=== PATIENT | male | born 1945 | race Caucasian/White ===

== ENCOUNTER → 2016-11-04 | Outpatient (CLI) | payer MEDICARE, OTHER ==
--- NOTE | 2016-11-04 11:35 | XR ---
EXAMINATION TYPE: XR chest 2V DATE OF EXAM: 11/04/2016 11:27 AM COMPARISON: NONE TECHNIQUE: PA and lateral views submitted. HISTORY: Shortness of breath FINDINGS: The lungs are clear and there is no pneumothorax, pleural effusion, or focal pneumonia. IMPRESSION: 1. No acute process.
== END | disposition home or self-care (01) ==
LOC: RADXRMAIN 11:03
PROVIDERS: ATTEND Family Medicine
DX: I20.9 Angina pectoris, unspecified (principal)
CPT/HCPCS: 71020

== ENCOUNTER → 2016-11-11 | Outpatient (CLI) | payer MEDICARE, OTHER ==
--- NOTE | 2016-11-11 12:01 | EST ---
DATE OF SERVICE: 11/11/2016 AGE: 70Y SEX: M HT: 68 WT: 230 lbs. Protocol Patrick: X Other: Stage: II Dur. of Exercise: 6-1/2 minutes *Heart Rate Blood Pressure *Rest: 70 Rest: 168/93 * *Max. Achieved: 98 Maximum BP: 189/90 85% PMHR: 129 100% PMHR: 152 *METS: 7.5 INDICATIONS: To evaluate for coronary artery disease in a patient as part of a physical. MEDICATIONS: Metformin, famotidine, pravastatin. Baseline EKG shows sinus rhythm, normal axis, poor R wave progression. Patient exercised on Patrick protocol for a total of 6-1/2 minutes, achieving 7.5 METs. Attained a peak heart rate 98 beats per minute, which is 64% of predicted maximal heart rate. The test was stopped at that level because of an inability to exercise. CONCLUSIONS: 1. Average exercise tolerance. 2. Inconclusive EKG part of the stress test due to inability to attain target heart rate.
--- NOTE | 2016-11-11 13:29 | US ---
EXAMINATION TYPE: US carotid duplex BILAT DATE OF EXAM: 11/11/2016 12:42 PM COMPARISON: NONE CLINICAL HISTORY: E78.5 hyperlipidemia. EXAM MEASUREMENTS: RIGHT: Peak Systolic Velocity (PSV) cm/sec ----- Right CCA: 66.9 ----- Right ICA: 92.1 ----- Right ECA: 105.7 ICA/CCA ratio: 1.4 RIGHT: End Diastole cm/sec ----- Right CCA: 19.7 ----- Right ICA: 38.1 ----- Right ECA: 25.4 LEFT: Peak Systolic Velocity (PSV) cm/sec ----- Left CCA: 80.0 ----- Left ICA: 85.5 ----- Left ECA: 106.1 ICA/CCA ratio: 1.1 LEFT: End Diastole cm/sec ----- Left CCA: 26.0 ----- Left ICA: 38.1 ----- Left ECA: 23.6 VERTEBRALS (direction of flow): Right Vertebral: Antegrade Left Vertebral: Antegrade TECHNOLOGIST IMPRESSION: No elevated velocities Incidental note of left thyroid nodules. Largest Low er lobe=3.4 x 3.4 x 2.5 cm Grayscale images show no significant focal plaque at carotid bulbs bilaterally. Velocity measurements and ratios in visualized portion of both internal carotid arteries is within normal limits. Incident al note is made of suspicious 3.3 cm solid left thyroid nodule. IMPRESSION: No hemodynamically significant stenosis in either internal carotid artery. Suspicious thyroid nodules. Dedicated thyroid ultrasound follow-up is advised to further evaluate and characteri ze.
--- NOTE | 2016-11-12 09:40 | ECHOF ---
Referral Reason:E78.5 hyperlipedemia MEASUREMENTS -------- HEIGHT: 172.7 cm WEIGHT: 104.3 kg BP: 154/85 RVIDd: 3.2 cm (< 3.3) IVSd: 1.3 cm (0.6 - 1.1) LVIDd: 4.8 cm (3.9 - 5.3) LVPWd: 1.1 cm (0.6 - 1.1) IVSs: 2.0 cm LVIDs: 3.4 cm LVPWs: 1.7 cm LA Diam: 3.2 cm (2.7 - 3.8) LAESV Index (A-L): 20.47 ml/m Ao Diam: 3.4 cm (2.0 - 3.7) AV Cusp: 1.8 cm (1.5 - 2.6) LA Diam: 3.3 cm (2.7 - 3.8) MV EXCURSION: 10.542 mm (> 18.000) MV EF SLOPE: 49 mm/s (70 - 150) EPSS: 0.6 cm MV E King: 0.49 m/s MV DecT: 315 ms MV A King: 0.73 m/s MV E/A Ratio: 0.67 RAP: 5.00 mmHg RVSP: 29.40 mmHg FINDINGS -------- Sinus rhythm. This was a technically adequate study. There is mild concentric left ventricular hypertrophy. Overall left ventricular systolic function is normal with, an EF between 55 - 60 %. The right ventricle is normal in size. Normal LA size by volume 22+/-6 ml/m2. The right atrium is normal in size. The aortic valve is trileaflet and appears structurally normal. Mild mitral annular calcification present. Mild tricuspid regurgitation present. Pulmonic valve appears structurally normal. The aortic root size is normal. Normal inferior vena cava with normal inspiratory collapse consistent with estimated right atrial pressure of 5 mmHg. Echo free space may represent effusion or a pericardial fat pad. CONCLUSIONS -------- 1. Sinus rhythm. 2. Mild tricuspid regurgitation present. 3. Pulmonic valve appears structurally normal. 4. The aortic root size is normal. 5. Normal inferior vena cava with normal inspiratory collapse consistent with estimated right atrial pressure of 5 mmHg. 6. Echo free space may represent effusion or a pericardial fat pad. 7. This was a technically adequate study. 8. There is mild concentric left ventricular hypertrophy. 9. Overall left ventricular systolic function is normal with, an EF between 55 - 60 %. 10. The right ventricle is normal in size. 11. Normal LA size by volume 22+/-6 ml/m2. 12. The right atrium is normal in size. 13. The aortic valve is trileaflet and appears structurally normal. 14. Mild mitral annular calcification present. INSULATION POWER UNIT TENDER: Virginia Chris RDCS
== END ==
LOC: RADNMMAIN 10:57
PROVIDERS: ATTEND Family Medicine
DX: E78.5 Hyperlipidemia, unspecified (principal)
CPT/HCPCS: 93017; 93306; 93880

== ENCOUNTER → 2016-12-01 | Outpatient (CLI) | payer MEDICARE, OTHER ==
--- NOTE | 2016-12-01 15:12 | US ---
EXAMINATION TYPE: US thyroid st tissue head/neck DATE OF EXAM: 12/01/2016 2:34 PM COMPARISON: NONE CLINICAL HISTORY: E04.1 Thyroid Nodule. GLAND SIZE: Right Lobe: 4.7 x 2.3 x 1.9 cm Overall Parenchyma: heterogenous Left Lobe: 5.4 x 3.1 x 2.8 cm Overall Parenchyma: heterogeneous Isthmus Thickness: 0.6 cm NODULES RIGHT: # of nodules measured on right: 1 1. 0.7 X 0.7 x 0.7 cm hypoechoic solid nodule at the lower pole with well-defined margins. This no dule is taller than wide and shows no intranodular vascularity. no prior LEFT: # of nodules measured on left: 2 1. 1.3 X 1.0 x 1.3 cm isoechoic solid nodule at the upper pole with well-defined margin. This nodul e is wider than tall and shows intranodular vascularity. no prior 2. 2.3 X 2.6 x 2.3 cm hypoechoic solid nodule at the mid pole with well-defined margins. This nodul e is taller than wide and shows intranodular vascularity. no prior ISTHMUS: # of nodules measured in the isthmus: 0 Bilateral neck scanned, no evidence of lymphadenopathy. IMPRESSION: 1. THYROMEGALY. 2. MULTINODULAR GOITER. CONSIDERATION MIGHT BE GIVEN TO BIOPSY THE LESIONS GREATER THAN A CENTIMETER.
== END | disposition home or self-care (01) ==
LOC: RADUSWWP 14:09
PROVIDERS: ATTEND Family Medicine
DX: E04.2 Nontoxic multinodular goiter (principal)
CPT/HCPCS: 76536

== ENCOUNTER 2017-02-06 12:10 | Day surgery (SDC) | payer MEDICARE, OTHER ==
[2017-02-06 14:15] VITALS: RESP 16; TEMP 97.6
[2017-02-06 14:16] VITALS: BP 146/72; PULSE 68
--- NOTE | 2017-02-06 14:30 | US ---
EXAMINATION TYPE: US FNA thyroid, US FNA thyroid for 2 nodules DATE OF EXAM: 02/06/2017 COMPARISON: NONE HISTORY: Thyroid nodules. Maximal barrier technique was utilized. After informed consent, skin overlying the lesion was locali zed with ultrasound and the overlying skin prepped and draped. Ultrasound was utilized using sterile technique. Lidocaine was used for local anesthesia. Four passes with a 25-gauge needle were made int o the mid pole nodule and aspirated specimen was submitted to cytology. Using similar technique the l ower pole nodule was sampled. Aspirate submitted to pathology. Following the procedure hemostasis ach ieved. No immediate complication. The patient discharged in stable condition. IMPRESSION: STATUS POST ULTRASOUND GUIDED FINE NEEDLE ASPIRATION OF THYROID NODULES both on the left, PATHOLOGY IS PENDING. THIS PROCEDURE WAS PERFORMED BY THE UNDERSIGNED.
== END 2017-02-06 13:50 | disposition home or self-care (01) ==
LOC: RADPROMAIN 12:10
PROVIDERS: ATTEND Surgery
DX: E04.2 Nontoxic multinodular goiter (principal)
CPT/HCPCS: 10022; 76942; 88173; 88305

== ENCOUNTER 2017-05-01 12:08 | Day surgery (SDC) | payer MEDICARE, OTHER ==
[2017-05-01 12:29] VITALS: RESP 14; TEMP 98
[2017-05-01 12:49] LABS: Glucose,Whole Blood 98 mg/dL (75-99)
[2017-05-01 13:28] VITALS: BP 156/93; PULSE 61
--- NOTE | 2017-05-01 13:35 | US ---
ULTRASOUND GUIDED FNA THYROID BIOPSY: CLINICAL HISTORY: 2 left-sided thyroid nodules FINDINGS: The procedure was explained to the patient. The risks, complications, benefits and alternatives were discussed and any questions were answered. Informed consent was obtained. Patient was placed supin e on the ultrasound table and prepped and draped in the usual sterile fashion. Utilizing a 25 gauge needle, five passes were made into the each of the requested 2 left thyroid nodules. Patient was stable throughout the procedure. Pathology is pending. All elements of maximal barrier technique were utilized. IMPRESSION: 1. Successful ultrasound guided FNA thyroid biopsy.
== END 2017-05-01 13:44 | disposition home or self-care (01) ==
LOC: RADPROMAIN 12:08
PROVIDERS: ATTEND Surgery
DX: E04.2 Nontoxic multinodular goiter (principal)
CPT/HCPCS: 10022; 76942; 88173; 88305

== ENCOUNTER 2018-05-04 12:13 | Day surgery (SDC) | payer MEDICARE, OTHER ==
[2018-05-04 12:47] VITALS: PULSE 96; RESP 20; TEMP 98.5
[2018-05-04 12:50] VITALS: BP 159/86
--- NOTE | 2018-05-04 14:32 | US ---
EXAMINATION TYPE: US FNA thyroid DATE OF EXAM: 05/04/2018 COMPARISON: NONE HISTORY: Thyroid nodule. Maximal barrier technique was utilized. After informed consent, skin overlying the lesion was locali zed with ultrasound and the overlying skin prepped and draped. Ultrasound was utilized using sterile technique. Lidocaine was used for local anesthesia. Five passes with a 25-gauge needle were made int o the mid pole left thyroid nodule and aspirated specimen was submitted to cytology. Following the p rocedure hemostasis achieved. No immediate complication. The patient discharged in stable condition . IMPRESSION: STATUS POST ULTRASOUND GUIDED FINE NEEDLE ASPIRATION OF MID POLE LEFT THYROID NODULE, PAT HOLOGY IS PENDING. THIS PROCEDURE WAS PERFORMED BY THE UNDERSIGNED.
--- NOTE | 2018-05-04 14:33 | US ---
EXAMINATION TYPE: US FNA thyroid DATE OF EXAM: 05/04/2018 COMPARISON: NONE HISTORY: Thyroid nodule. Maximal barrier technique was utilized. After informed consent, skin overlying the lesion was locali zed with ultrasound and the overlying skin prepped and draped. Ultrasound was utilized using sterile technique. Lidocaine was used for local anesthesia. Five passes with a 25-gauge needle were made int o the lower pole left thyroid nodule and aspirated specimen was submitted to cytology. Following the procedure hemostasis achieved. No immediate complication. The patient discharged in stable conditi on. IMPRESSION: STATUS POST ULTRASOUND GUIDED FINE NEEDLE ASPIRATION OF LOWER POLE LEFT THYROID NODULE, P ATHOLOGY IS PENDING. THIS PROCEDURE WAS PERFORMED BY THE UNDERSIGNED.
== END 2018-05-04 14:10 | disposition home or self-care (01) ==
LOC: RADPROMAIN 12:13
PROVIDERS: ATTEND Surgery
DX: E04.2 Nontoxic multinodular goiter (principal)
CPT/HCPCS: 10022; 76942; 88173; 88305

== ENCOUNTER → 2019-01-05 | Outpatient (CLI) | payer MEDICARE, OTHER ==
--- NOTE | 2019-01-05 15:24 | US ---
EXAMINATION TYPE: US thyroid st tissue head/neck DATE OF EXAM: 01/05/2019 COMPARISON: 12/01/2016 CLINICAL HISTORY: 73-year-old male E04.1 thyroid nodule. History of nodules, no thyroid meds TECHNIQUE: Multiple sonographic images of the thyroid gland are obtained. FINDINGS: GLAND SIZE: Right Lobe: 3.9 x 2.2 x 1.6 cm Overall Parenchyma: heterogenous Left Lobe: 5.7 x 2.4 x 3.0 cm Overall Parenchyma: heterogeneous Isthmus Thickness: 0.6 cm NODULES RIGHT: # of nodules measured on right: 1 1. 0.5 x 0.5 x 0.5 cm hypoechoic possibly cystic nodule at the lower pole with well-defined margins . This nodule is wide as tall and shows no intranodular vascularity. Prior size: 0.7 x 0.7 x 0.7 cm, smaller now. LEFT: # of nodules measured on left: 2 1. 1.4 x 1.3 x 1.2 cm isoechoic nodule at the upper pole with well-defined margins. This nodule is w ider than tall and shows peripheral vascularity. Prior size: 1.3 x 1.3 x 1.0 cm, larger by a millimeter or 2 in a couple dimensions. 2. 3.4 X 2.8 x 2.2 cm hypoechoic nodule at the lower pole with well-defined margins. This nodule is taller than wide and shows intranodular vascularity. Prior size: 3.0 x 2.6 x 2.3 cm ISTHMUS: # of nodules measured in the isthmus: 0 Bilateral neck scanned, no evidence of lymphadenopathy. Sonography notes: Bilateral enlarged thyroid lobes. IMPRESSION: 1. Multinodular goiter. 2. Dominant left lower pole solid nodule measures 3.4 x 2.8 cm versus 3.0 x 2.6 cm on 12/01/2016, only minimally larger. Other nodules are not significantly changed.
== END | disposition home or self-care (01) ==
LOC: RADUSWWP 13:24
PROVIDERS: ATTEND Surgery
DX: E04.2 Nontoxic multinodular goiter (principal)
CPT/HCPCS: 76536

== ENCOUNTER 2019-08-09 12:28 | Emergency (ER) | payer MEDICARE, OTHER ==
[2019-08-09 12:59] VITALS: BP 166/83; PULSE 63; RESP 18; TEMP 97.8
[2019-08-09] MEDS ORDERED: KETOROLAC 30 MG/ML 1 ML VIAL IM STA (13:21)
--- NOTE | 2019-08-09 14:02 | XR ---
Right femur HISTORY: Pain Frontal and lateral views of the right femur submitted on a total of 4 images Correlation to pelvis dated 02/25/2016 Osteoarthritic change again noted at the right hip. Bone mineralization and alignment are maintained. Osteoarthritic change also present within the right knee. No fracture or dislocation. Indeterminate calcification present within the soft tissues medial to the proximal right thigh. Consider alternate imaging for better evaluation. IMPRESSION: Osteoarthritis and additional findings above.
--- NOTE | 2019-08-09 14:26 | ED ---
General Adult HPI - General Chief complaint: Extremity Problem,Nontraumatic Stated complaint: Leg pain Time Seen by Provider: 08/09/19 13:09 Source: patient, RN notes reviewed Mode of arrival: ambulatory Limitations: no limitations - History of Present Illness Initial comments: 73-year-old male with a past medical history of diabetes, hyperlipidemia, GERD, thyroid disorder presents for right thigh pain. Patient states he has had pain in his right thigh for about a week. Patient does state that moving the leg makes this worse. States it feels like a "toothache" in his mid anterior thigh and states it does radiate into his right calf. He denies any weakness in the leg. He denies any injuries. Denies any history of blood clots. States he has been taking Motrin but does not seem to be helping much.Patient has no other complaints at this time including shortness of breath, chest pain, abdominal pain, nausea or vomiting, headache, or visual changes. - Related Data Home Medications Medication Instructions Recorded Confirmed Aspirin 81 mg PO DAILY 01/30/17 05/04/18 Famotidine 40 mg PO DAILY 01/30/17 05/04/18 Ibuprofen 800 mg PO DAILY PRN 01/30/17 05/04/18 Pravastatin Sodium [Pravachol] 20 mg PO DAILY 01/30/17 05/04/18 metFORMIN HCL [Metformin HCl] 500 mg PO BID 01/30/17 05/04/18 Allergies Allergy/AdvReac Type Severity Reaction Status Date / Time No Known Allergies Allergy Verified 08/09/19 12:58 Review of Systems ROS Statement: Those systems with pertinent positive or pertinent negative responses have been documented in the HPI. ROS Other: All systems not noted in ROS Statement are negative. Past Medical History Past Medical History: Diabetes Mellitus, GERD/Reflux, Hyperlipidemia, Thyroid Disorder History of Any Multi-Drug Resistant Organisms: None Reported Past Surgical History: Cholecystectomy, Prostate Surgery Additional Past Surgical History / Comment(s): prostate 2009 Past Anesthesia/Blood Transfusion Reactions: No Reported Reaction Past Psychological History: No Psychological Hx Reported Smoking Status: Former smoker Past Alcohol Use History: None Reported Past Drug Use History: None Reported - Past Family History Sister(s) Family Medical History: Cancer Additional Family Medical History / Comment(s): lung General Exam Limitations: no limitations General appearance: alert, in no apparent distress Head exam: Present: atraumatic, normocephalic, normal inspection Eye exam: Present: normal appearance, PERRL, EOMI. Absent: scleral icterus, conjunctival injection, periorbital swelling ENT exam: Present: normal exam, mucous membranes moist Neck exam: Present: normal inspection, full ROM. Absent: tenderness, meningismus, lymphadenopathy Respiratory exam: Present: normal lung sounds bilaterally. Absent: respiratory distress, wheezes, rales, rhonchi, stridor Cardiovascular Exam: Present: regular rate, normal rhythm, normal heart sounds. Absent: systolic murmur, diastolic murmur, rubs, gallop, clicks Extremities exam: Present: full ROM (Full range of motion of the right lower extremity although patient does have pain when flexing the hip and knee), tenderness (Minimal tenderness noted over the anterior thigh. Skin exam is normal.), normal capillary refill (Capillary refill less than 2 seconds, the pulse 2+ in the right lower extremity and equal bilaterally.), other (Sensation intact in the right lower extremity.). Absent: joint swelling (No edema or ecchymosis noted in the right lower extremity.), calf tenderness (Tenderness, negative Homans sign.) Course Vital Signs 08/09/19 12:55 Temperature 97.8 F Pulse Rate 63 Respiratory 18 Rate Blood Pressure 166/83 O2 Sat by Pulse 96 Oximetry Medical Decision Making - Medical Decision Making Exam of the right lower extremity is generally unremarkable. Neurovascular status is intact. Pain is elicited with movement and palpation of the right anterior medial thigh. X-ray shows osteoarthritis. There is an indeterminate calcination present within the soft tissues medial to the proximal right thigh. This is not wear patient's pain is located. However I did mention this with patient and discussed further imaging primary care office. Ultrasound shows no sonographic evidence for DVT within the right lower extremity. Patient was given Toradol and is feeling significantly better at this time. Patient will call his Dr. Dr. Navarrete today for follow-up. He will return here if he has any worsening symptoms. Disposition Clinical Impression: Thigh pain Disposition: HOME SELF-CARE Condition: Good Instructions (If sedation given, give patient instructions): Leg Pain (ED) Additional Instructions: Please take Motrin for pain. If pain is severe take Tylenol [address] or operative machinery while taking this. Please follow-up with Dr. Garces in the next few days. If you have any worsening symptoms return to the emergency department. Is patient prescribed a controlled substance at d/c from ED?: No Referrals: Misael Navarrete DO [Primary Care Provider] - 1-2 days Time of Disposition: 15:35
--- NOTE | 2019-08-09 14:44 | US ---
EXAMINATION TYPE: US venous doppler duplex LE RT DATE OF EXAM: 08/09/2019 2:28 PM COMPARISON: CLINICAL HISTORY: pain. No hx DVT. On aspirin. No redness. No swelling. Thigh pain. SIDE PERFORMED: Right TECHNIQUE: The lower extremity deep venous system is examined utilizing real time linear array sonog yeison with graded compression, doppler sonography and color-flow sonography. VESSELS IMAGED: External Iliac Vein (EIV) Common Femoral Vein Deep Femoral Vein Greater Saphenous Vein * Femoral Vein Popliteal Vein Small Saphenous Vein * Proximal Calf Veins (* superficial vessels) Grayscale, color doppler, spectral doppler imaging performed of the deep veins of the right lower ext remity. There is normal flow, compressibility, vascular waveforms. Right Leg: Negative for DVT IMPRESSION: No sonographic evidence of deep venous thrombosis within the right lower extremity.
[2019-08-09] MEDS ORDERED: ACET/COD 300 MG/30 MG STARTER PACK 6 TAB BTL PO STA (15:34)
== END 2019-08-09 15:45 | disposition home or self-care (01) ==
LOC: EC 12:28
DX: M79.651 Pain in right thigh (principal); M16.11 Unilateral primary osteoarthritis, right hip; E11.9 Type 2 diabetes mellitus without complications; E78.5 Hyperlipidemia, unspecified; Z79.82 Long term (current) use of aspirin; Z79.84 Long term (current) use of oral hypoglycemic drugs; Z79.899 Other long term (current) drug therapy; Z87.891 Personal history of nicotine dependence
CPT/HCPCS: 73552; 93971; 99284; 96372; J1885

== ENCOUNTER → 2020-02-09 | Outpatient (CLI) | payer MEDICARE, OTHER ==
--- NOTE | 2020-02-09 12:39 | US ---
EXAMINATION TYPE: US thyroid st tissue head/neck DATE OF EXAM: 02/09/2020 COMPARISON: US 2019 CLINICAL HISTORY: E04.1 Thyroid Nodule. Thyroid nodules, history of FNA GLAND SIZE: Right Lobe: 4.4 x 1.9 x 2.2 cm Overall Parenchyma: heterogenous Left Lobe: 5.5 x 3.1 x 2.5 cm Overall Parenchyma: heterogeneous Isthmus Thickness: 0.4 cm NODULES RIGHT: # of nodules measured on right: 1 1. 0.6 X 0.4 x 0.5 cm hypoechoic probable cystic nodule at the lower pole with well-defined margins . This nodule is wider than tall and shows peripheral vascularity. Prior size: 0.5 x 0.5 x 0.5 cm LEFT: # of nodules measured on left: 2 1. 1.6 X 1.1 x 1.3 cm isoechoic solid nodule at the upper/mid pole with well-defined margins. This nodule is wider than tall and shows increased peripheral vascularity. Prior size: 1.4 x 1.3 x 1.2 cm 2. 2.5 X 3.1 x 2.1 cm hypoechoic solid nodule at the mid/lower pole with well-defined margins. This nodule is taller than wide and shows intranodular vascularity. Prior size: 3.4 x 2.8 x 2.2 cm ISTHMUS: # of nodules measured in the isthmus: 0 Bilateral neck scanned, no evidence of lymphadenopathy. IMPRESSION: 1. Stable thyroid nodules
== END | disposition home or self-care (01) ==
LOC: RADUSWWP 10:11
PROVIDERS: ATTEND Surgery
DX: E04.2 Nontoxic multinodular goiter (principal)
CPT/HCPCS: 76536

== ENCOUNTER → 2020-04-06 | Outpatient (CLI) | payer MEDICARE, OTHER | END | disposition home or self-care (01) | LOC: LABPAT 11:10 | PROVIDERS: ATTEND Orthopaedic Surgery | DX: Z01.818 Encounter for other preprocedural examination (principal); Z01.812 Encounter for preprocedural laboratory examination; M16.12 Unilateral primary osteoarthritis, left hip | CPT/HCPCS: 87070 ==

== ENCOUNTER 2020-04-17 07:49 | Day surgery (SDC) | payer MEDICARE, OTHER ==
[2020-04-13 09:10] VITALS: BMI 34.9
--- NOTE | 2020-04-16 09:25 | HP ---
HISTORY AND PHYSICAL CHIEF COMPLAINT: Left hip pain. HISTORY OF PRESENT ILLNESS: The patient is a 74-year-old retired gentleman who presents with progressive left hip pain secondary to osteoarthrosis over the past several years. It has worsened over the past couple months. He notes thigh and groin pain , worse with weightbearing activities. He notes significant stiffness. He does use a cane. He has been taking anti-inflammatories with partial relief. PAST MEDICAL HISTORY: Significant for prostatic hypertrophy in addition to hypercholesterolemia and type 2 diabetes. PAST SURGICAL HISTORY: Significant for transurethral partial prostatectomy, cholecystectomy, and tonsillectomy. CURRENT MEDICATIONS: Aspirin, metformin, pravastatin and ibuprofen. ALLERGIES: He denies drug allergies. FAMILY HISTORY: Significant for cancer and stroke. SOCIAL HISTORY: Negative for current tobacco or alcohol use. REVIEW OF SYSTEMS: Sixteen point review of systems otherwise reviewed and is noncontributory. PHYSICAL EXAMINATION: On examination, the patient is approximately 5 foot 8, 230 pounds of endomorphic habitus. HEENT: Exam is nonfocal. NECK: Supple. He has painless passive motion of the right hip. Active motion left hip, flexion 70 degrees, external rotation of the hip flexed 50 degrees internal rotation, -10 degrees with pain. He has shortening of the left lower extremity compared to the right. He does have limited lumbar spine motion. His distal neurovascular appears intact in the lower extremities. AP and lateral views of the left hip obtained in the office show severe osteoarthrosis with [id number] changes and subchondral sclerosis. IMPRESSION: Left hip severe osteoarthrosis. RECOMMENDATIONS: I talked to the patient at length regarding his condition along with treatment options. At this point, he is quite symptomatic and limited because of pain related to his osteoarthrosis despite attempted conservative measures. After thorough discussion, he opts to proceed with surgery. We will plan to proceed with left total hip arthroplasty utilizing an anterior approach. Risks and benefits were discussed at length in layman's terms. We will institute DVT prophylaxis postoperatively. MMODL / IJN: [id number] /
[~2020-04-17 07:49] MED LIST: ACETAMINOPHEN TAB 500 MG TAB PO ONE; DEXAMETHASONE SOD PHOSPHATE 10 MG/ML 1 ML VIAL IV ONE; HYDROmorphone 0.5 MG/0.5 ML SYRINGE IVP PRN; LIDOCAINE 1% (10MG/ML) FOR IV START INTRADERMA PRN; MELOXICAM 7.5 MG TAB PO ONE; MIDAZOLAM 2 MG/2 ML VIAL IV PRN; ONDANSETRON 4 MG/2 ML VIAL IVP ONE; TRANEXAMIC ACID 1,000 MG in SODIUM CHLORIDE 0.9% 100 ML IVPB ONE
[2020-04-17] MEDS ORDERED: ACETAMINOPHEN TAB 500 MG TAB ONE ×2 (08:12→08:18)
[2020-04-17] MEDS ORDERED: ONDANSETRON 4 MG/2 ML VIAL ONE (08:13)
[2020-04-17 08:31] LABS: Glucose,Whole Blood 142 mg/dL (75-99)
[2020-04-17] MEDS: LACTATED RINGERS 1,000 ML IV SCH ×2 (08:33→18:02)
[2020-04-17 09:00] LABS: Prothrombin Time 10.4 sec (9.0-12.0)
[2020-04-17] MEDS ORDERED: SODIUM CHLORIDE 0.9% 100 ML BAG ONE (09:56)
[2020-04-17] MEDS ORDERED: fentaNYL (PF) 50 MCG/ML 2 ML AMP ONE (09:56)
[2020-04-17] MEDS ORDERED: MIDAZOLAM 2 MG/2 ML VIAL ONE (09:56)
[2020-04-17] MEDS ORDERED: ePHEDrine SULFATE/0.9% NACL/PF 50 MG/5 ML SYRINGE IV ONE (09:56)
[2020-04-17] MEDS ORDERED: HEPARIN SODIUM,PORCINE 10,000 UNIT/ML 1 ML VIAL ONE (09:56)
[2020-04-17] MEDS ORDERED: PHENYLEPHRINE-0.9% NACL SYG 1 MG/10 ML SYRINGE ONE (09:56)
[2020-04-17] MEDS ORDERED: PROPOFOL 10 MG/ML 20 ML VIAL IV ONE (09:56)
[2020-04-17] MEDS ORDERED: SODIUM CHLORIDE 0.9% IRRIG 1,000 ML BTL IRRIGATION ONE (09:56)
[2020-04-17] MEDS ORDERED: TRANEXAMIC ACID 1,000 MG/10 ML VIAL ONE (09:56)
[2020-04-17] MEDS ORDERED: ceFAZolin 3,000 MG in SODIUM CHLORIDE 0.9% IRRIGATIO 3,000 ML IRRIGATION ONE (10:35)
[2020-04-17] MEDS ORDERED: LACTATED RINGERS 1,000 ML IV ONE (11:30)
[2020-04-17] MEDS ORDERED: NALOXONE 0.4 MG/ML 1 ML VIAL IV PRN (12:11)
[2020-04-17] MEDS ORDERED: ONDANSETRON 4 MG/2 ML VIAL IVP PRN (12:11)
[2020-04-17] MEDS ORDERED: HYDROmorphone 0.5 MG/0.5 ML SYRINGE IVP PRN (12:11)
[2020-04-17] MEDS ORDERED: HYDROcodone/APAP 5-325MG 1 EACH TAB PO PRN (12:11)
[2020-04-17] MEDS ORDERED: MAGNESIUM HYDROXIDE 2,400 MG/10 ML CUP PO PRN (12:11)
[2020-04-17] MEDS ORDERED: ACETAMINOPHEN TAB 325 MG TAB PO PRN (12:11)
--- NOTE | 2020-04-17 12:34 | XR ---
EXAMINATION TYPE: XR Hip Limited LT DATE OF EXAM: 04/17/2020 COMPARISON: NONE HISTORY: Postop TECHNIQUE: One view submitted. FINDINGS: There is postsurgical change in near anatomic alignment. There is soft tissue edema and emphysema. IMPRESSION: 1. Postoperative change. Appears in near-anatomic alignment.
--- NOTE | 2020-04-17 12:36 | FL ---
EXAMINATION TYPE: FL guidance operating room DATE OF EXAM: 04/17/2020 HISTORY: Fluoroscopy time 50 seconds of fluoroscopy provided. IMPRESSION: 1. Fluoroscopy time.
--- NOTE | 2020-04-17 12:37 | P.OP ---
Date of Procedure: 04/17/20 Preoperative Diagnosis: Left hip severe osteoarthrosis Postoperative Diagnosis: Same Procedure(s) Performed: Left total hip arthroplastypress-fitanterior approach Implants: Depuy Corail size 10 KLA press-fit collared femoral stem, 36-2 cobalt chrome femoral head, 58 mm [place] acetabular shell with neutral polyethylene liner. Anesthesia: spinal Surgeon: Chriss Andersen Resort Host #1: Edgar Lr Estimated Blood Loss (ml): 1,250 Pathology: other (Femoral head) Condition: stable Disposition: PACU Indications for Procedure: The patient is a 74-year-old male presents with progressive left hip pain secondary to osteoarthrosis despite conservative measures. A discussion of the risks and benefits of operative intervention versus continued conservative measures was made with patient. He opted to proceed with surgery. Operative risks to include infection, neurovascular injury, development of blood clots, possible fracture, possible leg length discrepancy, possible instability need for subsequent procedures was discussed. Informed consent was obtained. Operative Findings: As below Description of Procedure: The patient was brought to the operating room, and after induction of spinal anesthesia was placed supine on the Selena table. Positioning was checked with fluoroscopy. The left hip was then prepped and draped in a normal fashion. A 12 cm incision was then made starting 2 fingerbreadths distal and 3 finger breaths posterior to the ASIS in line with the proximal femur. The skin was incised sharply. Subcutaneous tissues were divided sharply. Electrocautery was used for hemostasis. The fascia was split in line with skin incision. The interval between the sartorius and tensor fascia gauri was then bluntly developed. The posterior fascia was opened with electrocautery. The lateral circumflex vessels were identified and cauterized prior to sectioning. A retractor was placed along the superior femoral neck as well as the anterior nicholas tabular rim. A wide capsulotomy was performed. The neck cut was then made at a 45 angle to the shaft approximately 1 1/2 cm above the level of the lesser trochanter. The head was extracted. Attention was then paid towards preparing the acetabular. Anterior and posterior retractors were placed. The remaining capsular labral tissue sharply debrided clearly defining the acetabular margins. I began reaming with a 49 mm reamer taking care to initially medialize then reaming at 45 of abduction and 20 of anteversion. Sequential reaming is performed up to 57 mm. A trial 58 mm acetabular shell was inserted in the same orientation and was fully seated. There was good rim fit and stability. Positioning was checked with fluoroscopy. The final 58 mm acetabular shell was inserted again at 45 of abduction and 20 of anteversion. This was fully seated. There was good rim fit and stability. Again fluoroscopy was used to check the adequacy of placement. A neutral polyethylene liner was gently impacted. Care was taken to avoid any soft tissue interposition. Pulsatile lavage was utilized. Attention was then paid towards preparing the proximal femur. The central region was cleared of soft tissue. A canal finder was used to find the femoral canal. He had a very tight canal, therefore a ball-tipped guidewire was inserted down the canal and it was reamed up to 10 mm. Sequential broaching was performed up to size 10 taking care to lateralize proximally. A calcar mill was used to fashion the medial calcar. There was good rotational stability. A KLA neck along with a 36 mm -2 head was placed. The hip was gently reduced. Fluoroscopy was used to check the adequacy of positioning along with leg lengths. I felt both were good. The hip was gently dislocated. The trial components were removed. The final size 10 collared KLA press-fit femoral stem was inserted parallel to the posterior cortex. This was fully seated and there was good rotational stability. A 36 mm -2 head was placed. This was gently impacted. The hip was then gently reduced. Final fluoroscopic view showed adequate placement implant along with roman catholic of leg length. Stability was checked with 80 of external rotation and 60 of extension of the right hip. The wound was irrigated with sterile lavage. The fascia was closed with running 0 Vicryl suture. There was minimal drainage therefore a deep drain was not placed. The second dose of IV TXA was given. The subcutaneous tissues were reapproximated interrupted 2-0 Vicryl sutures. The skin was reapproximated with 3-0 subcuticular strata fix suture. Skin tape and adhesive was applied. A sterile dressing was applied. The patient was then awoken from sedation and transferred to recovery room in good condition. Blood loss was estimated at 1250 mL. He did receive 600 mL of Cell Saver back. No complications were incurred. Sponge and needle counts were correct at the end of the case. Fritz TRAN assisted during the major components is case to include exposure, bone resection, implantation, and closure.
[2020-04-17 13:04] LABS: Glucose,Whole Blood 159 mg/dL (75-99)
[2020-04-17 14:05] LABS: Glucose,Whole Blood 177 mg/dL (75-99)
[2020-04-17] MEDS: HYDROcodone/APAP 7.5-325MG 1 EACH TAB PO PRN ×2 (15:33→23:16)
[2020-04-17 16:29] LABS: Glucose,Whole Blood 320 mg/dL (75-99)
[2020-04-17] MEDS: INSULIN ASPART (NovoLOG) 100 UNIT/ML VIAL SQ SCH ×2 (17:37→21:03)
[2020-04-17] MEDS: metFORMIN 500 MG TAB PO SCH (20:50)
[2020-04-17] MEDS ORDERED: SENNOSIDES-DOCUSATE SODIUM 1 EACH TAB PO SCH (21:00)
[2020-04-17 21:50] LABS: Glucose,Whole Blood 239 mg/dL (75-99)
[2020-04-17] MEDS ORDERED: ENOXAPARIN 40 MG/0.4 ML SYRINGE SQ SCH (23:00)
--- NOTE | 2020-04-18 00:14 | P.CONS ---
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 Patient has been suffering from increased pain and arthritis of the left hip for the last few months become much worse last few weeks. Patient ended up seen orthopedics x-ray showed significant [id number] and patient was giving the option to go for active management total hip arthroplasty. Surgery was done today successfully with Dr. Turpin patient was admitted to the floor med reconsultation was done he still having mild difficulty in urination with mild urinary retention so far otherwise pain is well controlled on vitals are stable. Review of Systems CONSTITUTIONAL: Well-developed no acute respiratory distress. EYES: No icterus sclerae, no conjunctivitis. EARS, NOSE, MOUTH, THROAT, and FACE: No sore throat, lymphadenopathy, carotid bruits or deformity. RESPIRATORY: No SOB cough or wheezes. CARDIOVASCULAR: No CP, Palpitation, PND, Orthopnea, or angina. GASTROINTESTINAL: No Abd pain, Nausea or vomiting, no Diarrhea or constipation, No GI Bleed, no distention or masses. GENITOURINARY: Negative for Hematuria or UTI, no kidney stones. INTEGUMENT/BREAST: Incision in the left hip looks fine looks more lateral surgery than anterior approach. No hematoma or bleeding with trace edema of the leg. HEMATOLOGIC/LYMPHATIC: Negative for bleed or purpura. MUSCULOSKELTAL: Negative for Myalgia or arthralgia. NEURLOGICAL: No LOC, Sz or syncope, blurred vision dizziness or abnormality.. BEHAVIORAL/PSYCH: Negative. ENDOCRINE: Negative. Past Medical History Past Medical History: Diabetes Mellitus, GERD/Reflux, Hyperlipidemia, Thyroid Disorder Additional Past Medical History / Comment(s): thyroid goiter History of Any Multi-Drug Resistant Organisms: None Reported Past Surgical History: Cholecystectomy, Prostate Surgery Additional Past Surgical History / Comment(s): prostate 2009 Past Anesthesia/Blood Transfusion Reactions: No Reported Reaction Past Psychological History: No Psychological Hx Reported Smoking Status: Former smoker Past Alcohol Use History: None Reported Additional Past Alcohol Use History / Comment(s): smoked 15 years 1ppd quit 1979 Past Drug Use History: None Reported - Past Family History Sister(s) Family Medical History: Cancer Additional Family Medical History / Comment(s): lung Medications and Allergies Home Medications Medication Instructions Recorded Confirmed Type Aspirin 81 mg PO DAILY 01/30/17 04/13/20 History Ibuprofen 800 mg PO DAILY PRN 01/30/17 04/13/20 History Pravastatin Sodium [Pravachol] 20 mg PO DAILY 01/30/17 04/17/20 History metFORMIN HCL [Metformin HCl] 500 mg PO BID 01/30/17 04/17/20 History Ascorbic Acid [Vitamin C] 500 mg PO DAILY 04/13/20 04/13/20 History Forsan-3 Fatty Acids/Fish Oil [Fish 1 each PO DAILY 04/13/20 04/13/20 History Oil 1,000 mg Softgel] Allergies Allergy/AdvReac Type Severity Reaction Status Date / Time No Known Allergies Allergy Verified 04/17/20 08:11 Physical Exam Vitals: Vital Signs Temp Pulse Pulse Resp BP Pulse Ox 04/17/20 15:10 84 145/68 96 04/17/20 14:55 105 H 117/70 96 04/17/20 14:40 103 H 127/77 96 04/17/20 14:25 102 H 136/75 96 04/17/20 14:10 100 149/80 96 04/17/20 13:55 99 134/83 96 04/17/20 13:40 99 147/83 96 04/17/20 13:25 98.0 F 91 122/76 96 04/17/20 13:24 98.0 F 90 16 122/76 96 04/17/20 13:12 89 16 122/67 98 04/17/20 13:03 90 18 125/67 99 04/17/20 12:45 95 18 108/69 96 04/17/20 12:32 98.0 F 74 16 107/64 95 04/17/20 08:08 97.2 F L 73 16 167/79 98 Intake and Output 04/17/20 04/17/20 04/17/20 06:59 14:59 22:59 Intake Total 1711 Output Total 1250 Balance 461 Intake: IV 1651 Intake, IV Titration 60 Amount Lactated Ringers 1,000 ml 60 @ 60 mls/hr IV .[id number] [facility] Rx#:[id number] Output: Estimated Blood Loss 1250 Other: Weight 105.4 kg General Appearance: Alert, cooperative, no distress, appears stated age. Neck HEENT: Supple, no lymphadenopathy, no thyroid enlargement, no carotid bruits. Lungs: Clear to auscultation without crackles or wheezes no rhonchi, no deformity. Chest Wall: Chest wall normal expansion with deep inspiration no tenderness and no deformity was found on exam, no costochondral pain or discomfort. Heart: Regular rate and rhythm, S1, S2 normal, no murmur, rub or gallop. Back: Symmetric, no curvature, ROM normal, no CVA tenderness. Abdomen: Soft, non-tender, bowel sounds active all four quadrants, no masses, no organomegaly. Extremities: Extremities normal, atraumatic, no cyanosis or edema.Incision left hip looks fine with no bleeding no induration patient is able to wiggle his toes and push down with his foot with no lack function. Pulses: 2+ and symmetric. Skin: Skin color, texture, tugor normal, no rashes or lesions. Neurologic: Alert oriented x3 cranial nerves II through XII intact, no motor deficit, no abnormal balance or gait. Results CBC & Chem 7: 04/17/20 08:32 Labs: Abnormal Lab Results - Last 24 Hours (Table) 04/17/20 04/17/20 04/17/20 Range/Units 08:29 13:02 14:01 POC Glucose (mg/dL) 142 H 159 H 177 H (75-99) mg/dL 04/17/20 Range/Units 16:27 POC Glucose (mg/dL) 320 H (75-99) mg/dL Assessment and Plan Assessment: Post left total hip arthroplasty: Surgery went successfully with no complication no bleeding or hematoma patient is well rested in bed vitals are stable medically consultation were done. 2 type 2 diabetes: Has been on metformin continue Accu-Chek with sliding scales coverage for now. 3 hyperlipidemia: Continue pravastatin as before. 4 chronic GERD: Remain on PPI. 5 hypothyroidism: To continue his testing on time and we need medication will be started. 6 chronic pain management and chronic pain: Patient be on hydrocodone as needed basis. CODE STATUS: Full code. Dr. Olivo thank you much for the consult for can be any further help to please let me know.
[2020-04-18 07:02] LABS: Glucose,Whole Blood 179 mg/dL (75-99)
[2020-04-18 07:24] LABS: Basophils % (A) 0 %; Eosinophils % (A) 0 %; HCT 32.8 % (39.0-53.0); Lymphocytes # (A) 1.3 k/uL (1.0-4.8); Lymphocytes % (A) 15 %; MCH 31.5 pg (25.0-35.0); MCHC 32.6 g/dL (31.0-37.0); MCV 96.7 fL (80.0-100.0); Mean Platelet Volume 8.3; Monocytes # (A) 0.5 k/uL (0-1.0); Monocytes % (A) 6 %; Neutrophils # (A) 6.7 k/uL (1.3-7.7); Neutrophils % (A) 76 %; Platelet Count 162 k/uL (150-450); RDW 13.9 % (11.5-15.5); WBC 8.8 k/uL (3.8-10.6)
[2020-04-18 07:29] LABS: HGB 10.7 gm/dL (13.0-17.5)
[2020-04-18] MEDS: HYDROcodone/APAP 7.5-325MG 1 EACH TAB PO PRN ×2 (08:12→13:36)
[2020-04-18] MEDS: metFORMIN 500 MG TAB PO SCH (08:13)
[2020-04-18] MEDS: INSULIN ASPART (NovoLOG) 100 UNIT/ML VIAL SQ SCH ×2 (08:13→11:38)
[2020-04-18 08:17] VITALS: BP 150/52; PULSE 72; RESP 17; TEMP 97.9
[2020-04-18] MEDS ORDERED: ASPIRIN 81 MG PO SCH (09:00)
[2020-04-18] MEDS ORDERED: PRAVASTATIN SODIUM 20 MG TAB PO SCH (09:00)
[2020-04-18] MEDS ORDERED: FAMOTIDINE 20 MG TAB PO SCH (09:00)
[2020-04-18 11:25] LABS: Glucose,Whole Blood 147 mg/dL (75-99)
--- NOTE | 2020-04-18 11:26 | P.PN ---
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 Patient has been suffering from increased pain and arthritis of the left hip for the last few months become much worse last few weeks. Patient ended up seen orthopedics x-ray showed significant [id number] and patient was giving the option to go for active management total hip arthroplasty. Surgery was done today successfully with Dr. Turpin patient was admitted to the floor med reconsultation was done he still having mild difficulty in urination with mild urinary retention so far otherwise pain is well controlled on vitals are stable. 04/18: Patient is seen today in follow-up. He did have trouble with pain control during the night but it is much better this morning. He has not had a bowel movement but is taking a stool softener. He is currently on Lovenox. Patient is requesting a wheeled walker which will be deferred to orthopedics. Patient anticipates discharge home today and requesting VNA. WBC 8.8, hemoglobin 10.7, platelet count 162. Blood sugars 179 this morning blood to 300 yesterday afternoon. Patient has been afebrile, heart rate 72, blood pressure 150/52, pulse ox 98% on room air. Patient is cleared for medicine for discharge home. Review of systems CONSTITUTIONAL: Well-developed no acute respiratory distress. Denies fever or chills. EYES: No icterus sclerae, no conjunctivitis. EARS, NOSE, MOUTH, THROAT, and FACE: No sore throat, lymphadenopathy, carotid bruits or deformity. RESPIRATORY: No SOB cough or wheezes. CARDIOVASCULAR: No CP, Palpitation, PND, Orthopnea, or angina. GASTROINTESTINAL: No Abd pain, Nausea or vomiting, no Diarrhea or constipation, No GI Bleed, no distention or masses. GENITOURINARY: Negative for Hematuria or UTI, no kidney stones. INTEGUMENT/BREAST: Incision in the left hip looks fine looks more lateral surgery than anterior approach. No hematoma or bleeding with trace edema of the leg. HEMATOLOGIC/LYMPHATIC: Negative for bleed or purpura. MUSCULOSKELTAL: Negative for Myalgia or arthralgia. NEURLOGICAL: No LOC, Sz or syncope, blurred vision dizziness or abnormality.. BEHAVIORAL/PSYCH: Negative. ENDOCRINE: Negative. Physical examination General Appearance: Alert, cooperative, no distress, appears stated age. Neck HEENT: Supple, no lymphadenopathy, no thyroid enlargement, no carotid bruits. Lungs: Clear to auscultation without crackles or wheezes no rhonchi, no deformity. Chest Wall: Chest wall normal expansion with deep inspiration no tenderness and no deformity was found on exam, no costochondral pain or discomfort. Heart: Regular rate and rhythm, S1, S2 normal, no murmur, rub or gallop. Back: Symmetric, no curvature, ROM normal, no CVA tenderness. Abdomen: Soft, non-tender, bowel sounds active all four quadrants, no masses, no organomegaly. Extremities: Extremities normal, atraumatic, no cyanosis or edema.Incision left hipof drainage or bleeding. No significant edema, no erythema.. Pulses: 2+ and symmetric. Skin: Skin color, texture, tugor normal, no rashes or lesions. Neurologic: Alert oriented x3 cranial nerves II through XII intact, no motor deficit, no abnormal balance or gait. Assessment and plan 1 Post left total hip arthroplasty. Continue current pain management, incentive spirometry to reduce incidence of atelectasis and hospital-acquired pneumonia, DVT prophylaxis per orthopedics. 2 type 2 diabetes: Has been on metformin continue Accu-Chek with sliding scales coverage for now. 3 hyperlipidemia: Continue pravastatin as before. 4 chronic GERD: Remain on PPI. 5 hypothyroidism: To continue his testing on time and we need medication will be started. 6 chronic pain management and chronic pain: Patient be on hydrocodone as needed basis. CODE STATUS: Full code. Dr. Olivo thank you much for the consult for can be any further help to please let me know. Discharge plan: Home with VNA Impression and plan of care have been directed as dictated by the signing jerry melendrez. Lyndsey Clarke nurse practitioner acting as scribe for signing physician. Objective - Vital Signs Vital signs: Vital Signs Temp 98.5 F 04/18/20 01:00 Pulse 78 04/18/20 01:00 Resp 20 04/18/20 01:00 BP 110/65 04/18/20 01:00 Pulse Ox 95 08/19/20 01:00 Intake & Output 04/17/20 04/18/20 04/18/20 18:59 06:59 18:59 Intake Total 1711 1025 Output Total 1250 Balance 461 1025 Weight 105.4 kg Intake: IV 1651 Intake, IV Titration 60 725 Amount Lactated Ringers 1,000 ml 60 625 @ 60 mls/hr IV .[id number] [facility] Rx#:[id number] ceFAZolin 2 gm In Sodium 100 Chloride 0.9% 50 ml @ 100 mls/hr IVPB Q8H [facility] Rx#: [id number] Oral 300 Output: Estimated Blood Loss 1250 Other: Voiding Method Toilet # Voids 1 - Labs CBC & Chem 7: 04/18/20 06:13 04/17/20 08:32 Labs: Abnormal Lab Results - Last 24 Hours (Table) 04/17/20 04/17/20 04/17/20 Range/Units 08:29 13:02 14:01 RBC (4.30-5.90) m/uL Hgb (13.0-17.5) gm/dL Hct (39.0-53.0) % POC Glucose (mg/dL) 142 H 159 H 177 H (75-99) mg/dL 04/17/20 04/17/20 04/18/20 Range/Units 16:27 20:57 06:13 RBC 3.40 L (4.30-5.90) m/uL Hgb 10.7 L D (13.0-17.5) gm/dL Hct 32.8 L (39.0-53.0) % POC Glucose (mg/dL) 320 H 239 H (75-99) mg/dL 04/18/20 Range/Units 07:01 RBC (4.30-5.90) m/uL Hgb (13.0-17.5) gm/dL Hct (39.0-53.0) % POC Glucose (mg/dL) 179 H (75-99) mg/dL
--- NOTE | 2020-04-18 11:54 | P.PN ---
Subjective Progress Note Date: 04/18/20 Principal diagnosis: Status post left hip direct anterior arthroplasty Patient evaluated at the bedside, he's doing very well. His pain is well- controlled. He denies any chest pain or shortness of breath. Objective - Vital Signs Vital signs: Vital Signs Temp 97.9 F 04/18/20 07:00 Pulse 72 04/18/20 07:00 Resp 17 04/18/20 07:00 BP 150/52 04/18/20 07:00 Pulse Ox 98 04/18/20 07:00 Intake & Output 04/17/20 04/18/20 04/18/20 18:59 06:59 18:59 Intake Total 1711 1025 Output Total 1250 Balance 461 1025 Weight 105.4 kg Intake: IV 1651 Intake, IV Titration 60 725 Amount Lactated Ringers 1,000 ml 60 625 @ 60 mls/hr IV .[id number] [facility] Rx#:[id number] ceFAZolin 2 gm In Sodium 100 Chloride 0.9% 50 ml @ 100 mls/hr IVPB Q8H [facility] Rx#: [id number] Oral 300 Output: Estimated Blood Loss 1250 Other: Voiding Method Toilet # Voids 1 - Exam Left lower extremity: Incision is clean, dry, and intact. The exofin fusion tape is in good condit ion. There is minimal soft tissue swelling and ecchymosis surrounding the medial and lateral aspects of the incision. Calf is soft, no tenderness with palpation. Plantar flexion, dorsiflexion, EHL, FHL are intact. Sensory exam to light touch throughout the extremity is intact, dorsal pedis pulses 2+. - Labs CBC & Chem 7: 04/18/20 06:13 04/17/20 08:32 Labs: Abnormal Lab Results - Last 24 Hours (Table) 04/17/20 04/17/20 04/17/20 Range/Units 13:02 14:01 16:27 RBC (4.30-5.90) m/uL Hgb (13.0-17.5) gm/dL Hct (39.0-53.0) % POC Glucose (mg/dL) 159 H 177 H 320 H (75-99) mg/dL 04/17/20 04/18/20 04/18/20 Range/Units 20:57 06:13 07:01 RBC 3.40 L (4.30-5.90) m/uL Hgb 10.7 L D (13.0-17.5) gm/dL Hct 32.8 L (39.0-53.0) % POC Glucose (mg/dL) 239 H 179 H (75-99) mg/dL 04/18/20 Range/Units 11:24 RBC (4.30-5.90) m/uL Hgb (13.0-17.5) gm/dL Hct (39.0-53.0) % POC Glucose (mg/dL) 147 H (75-99) mg/dL Assessment and Plan Assessment: Status post direct anterior left total hip arthroplasty Plan: Pain control, plan for discharge home on oral medication GI and DVT prophylaxis, aspirin 81 mg twice a day Wound care instructions discussed Home physical therapy and nursing discharge Medical recommendations Plan discharge home today Time with Patient: Less than 30
--- NOTE | 2020-04-18 11:57 | P.DS ---
Providers Date of admission: 04/17/2020 Expected date of discharge: 04/18/20 Attending physician: Chriss Andersen Consults: 04/17/20 12:11 Consult Physician Routine Consulting Provider: Misael Navarrete Reason/Comments: medical management Do you want consulting provider notified?: Yes Primary care physician: Misael Navarrete [place] [facility] Course: Date of admission: 04/17/2020 Date of discharge: 04/18/2020 Admission diagnosis: Status post direct anterior left total hip arthroplasty Discharge diagnosis: Same Attending physician: Dr. Andersen Surgical procedures: Direct anterior left total hip arthroplasty Brief history: Patient is a 74-year-old male with a history of progressive primary left hip osteoarthritis. At this point patient has failed conservative treatment measures and has opted to proceed with a elective left direct anterior total hip arthroplasty. Hospital course: Details of patient's surgery can be found in operative report. Patient tolerated the procedure well and was subsequently transported to orthopedic floor. Patient's orthopeidc and medical care was provided daily. Patient had daily laboratory tests performed for evaluation of overall blood counts. Patient had daily physical therapy to include strengthening range of motion as well as education with walker ambulation. Patient was treated with Lovenox for their postoperative DVT prophylaxis during their inpatient stay. Patient was noted to have a relatively uneventful postoperative course. Patient reported satisfactory pain control with oral pain medications by postoperative day 0. Patient showed satisfactory progress with physical therapy. Patient moved steadily through the program and had no difficulty meeting the goals by postoperative day 1. Given patient's otherwise satisfactory course and having met physical therapy goals, plan is to discharge patient home on postoperative day 1. Discharge condition/disposition: Patient will be discharged home in stable condition. Discharge medications: Instructions are given on resumption of patient's normal daily medications per primary care recommendation, in addition patient will be prescribed [place] 7.5 mg/325 mg, Colace 100 mg, ferrous sulfate 325 Mg. Discharge instructions: 1. Wound care and infection precautions, keep incision dry and covered while showering, no lotions, creams, moisturizers. No soaking, tubs, pools, hottubs. Do not scrub over the incision. 2. Weight-bear as tolerated with walker / cane until follow-up. 3. Ice and elevate when necessary. Do not exceed 20 minutes per hour with ice pack. 4. Utilize compression sleeve until seen at first follow up appointment. 5. Visiting nursing care. 6. Home physical therapy. 7. Pain meds and anticoagulants per prescription. 8. Pain medication has potential to cause constipation. Increase oral fluid and fiber intake. Contact primary care provider if you have not had a bowel movement within 48 hours after discharge 9. No anti-inflammatory medication until discussed at first post operative visit, this including Motrin, Aleve, Mobic, Diclofenac. 10. Follow up in office at 2 weeks postop with Fritz Lr PA-C 11. Follow up with your primary care doctor 7-10 days after discharge. 12. Contact [facility] with any questions, . Procedures: Direct anterior left total hip arthroplasty Patient Condition at Discharge: Good Plan - Discharge Summary Discharge Rx Participant: No New Discharge Prescriptions: New Aspirin [Adult Low Dose Aspirin EC] 81 mg PO BID #60 tablet. Docusate [Colace] 100 mg PO DAILY #30 capsule Ferrous Sulfate [Feosol] 325 mg PO BID #30 tab HYDROcodone/APAP 7.5-325MG [[place] 7.5] 1 each PO Q6HR PRN #28 tab PRN Reason: Pain Discontinued Aspirin 81 mg PO DAILY No Action Pravastatin Sodium [Pravachol] 20 mg PO DAILY Ibuprofen 800 mg PO DAILY PRN PRN Reason: Pain metFORMIN HCL [Metformin HCl] 500 mg PO BID Ascorbic Acid [Vitamin C] 500 mg PO DAILY [place]-3 Fatty Acids/Fish Oil [Fish Oil 1,000 mg Softgel] 1 each PO DAILY Discharge Medication List Ibuprofen 800 mg PO DAILY PRN 01/30/17 [History] Pravastatin Sodium [Pravachol] 20 mg PO DAILY 01/30/17 [History] metFORMIN HCL [Metformin HCl] 500 mg PO BID 01/30/17 [History] Ascorbic Acid [Vitamin C] 500 mg PO DAILY 04/13/20 [History] [place]-3 Fatty Acids/Fish Oil [Fish Oil 1,000 mg Softgel] 1 each PO DAILY 04/13/20 [History] Aspirin [Adult Low Dose Aspirin EC] 81 mg PO BID #60 tablet. 04/18/20 [Rx] Docusate [Colace] 100 mg PO DAILY #30 capsule 04/18/20 [Rx] Ferrous Sulfate [Feosol] 325 mg PO BID #30 tab 04/18/20 [Rx] HYDROcodone/APAP 7.5-325MG [[place] 7.5] 1 each PO Q6HR PRN #28 tab 04/18/20 [Rx] Follow up Appointment(s)/Referral(s): [facility] [NON-STAFF] - As Needed (nu) Edgar Lr, NIMA [PHYSICIAN INSPECTION MANAGER] - 05/02/20 2:10 pm Misael Navarrete DO [Primary Care Provider] - 1 Week [facility] Visiting Nurse, [NON-STAFF] - As Needed Patient Instructions/Handouts: Joint Replacement Surgery (DC) Activity/Diet/Wound Care/Special Instructions: Orthopedic Discharge Instructions: 1. Wound care and infection precautions, keep incision dry and covered while showering, no lotions, creams, moisturizers. No soaking, pools, hot tubs. Do not scrub over incision. 2. Weight-bear as tolerated with walker / cane until follow-up. 3. Ice and elevate when necessary. Do not exceed 20 minutes per hour with ice pack. 4. Utilize compression sleeve until seen at first follow up appointment. 5. Pain meds and anticoagulants per prescription. 6. Pain medication has potential to cause constipation. Increase oral fluid and fiber intake. Contact primary care provider if you have not had a bowel movement within 48 hours after discharge. 7. No anti-inflammatory medication until discussed at first post operative visit, this including Motrin, Aleve, Mobic, Diclofenac. 8. Follow up in office at 2 weeks postop with Fritz Lr PA-C 9. Follow up with your primary care doctor 7-10 days after discharge. 10. Contact [facility] with any questions, . Discharge Disposition: HOME WITH HOME HEALTH SERVICES
[2020-04-18 16:54] LABS: Hemoglobin A1C 6.8 % (4.0-6.0)
== END 2020-04-18 14:39 | disposition home health service (06) ==
LOC: OR 07:49 → 4SSUR 12:34 → OR 04-18 14:39
PROVIDERS: ATTEND Orthopaedic Surgery
DX: M16.12 Unilateral primary osteoarthritis, left hip (principal); N40.0 Benign prostatic hyperplasia without lower urinary tract symptoms; E78.00 Pure hypercholesterolemia, unspecified; R33.8 Other retention of urine; E11.9 Type 2 diabetes mellitus without complications; E78.5 Hyperlipidemia, unspecified; K21.9 Gastro-esophageal reflux disease without esophagitis; E03.9 Hypothyroidism, unspecified; Z90.49 Acquired absence of other specified parts of digestive tract; Z98.890 Other specified postprocedural states; Z90.79 Acquired absence of other genital organ(s); G89.29 Other chronic pain; Z80.9 Family history of malignant neoplasm, unspecified; Z82.3 Family history of stroke; E66.9 Obesity, unspecified; Z68.35 Body mass index [BMI] 35.0-35.9, adult; Z86.39 Personal history of other endocrine, nutritional and metabolic disease; Z97.2 Presence of dental prosthetic device (complete) (partial); Z79.891 Long term (current) use of opiate analgesic; Z79.84 Long term (current) use of oral hypoglycemic drugs; Z79.1 Long term (current) use of non-steroidal anti-inflammatories (NSAID); Z79.82 Long term (current) use of aspirin; Z79.899 Other long term (current) drug therapy; Z87.891 Personal history of nicotine dependence
CPT/HCPCS: 97161; 86891; 84132; 85025; 85610; 88300; 83036; 73501; 27130; P9022; C1776; J2250; J1644; J1100; J0690 ×3; J2405; J1650; J3010; J2370; J2704; 36415; 86850; 86900; 86901

== ENCOUNTER → 2021-04-01 | Outpatient (CLI) | payer MEDICARE, OTHER | END | disposition home or self-care (01) | LOC: LABPAT 11:22 | PROVIDERS: ATTEND Orthopaedic Surgery | DX: Z01.812 Encounter for preprocedural laboratory examination (principal); M16.11 Unilateral primary osteoarthritis, right hip; Z22.322 Carrier or suspected carrier of Methicillin resistant Staphylococcus aureus | CPT/HCPCS: 87070 ==

== ENCOUNTER 2021-04-09 11:43 | Day surgery (SDC) | payer MEDICARE, OTHER ==
--- NOTE | 2021-03-29 16:52 | HP ---
HISTORY AND PHYSICAL CHIEF COMPLAINT: Right hip pain. HISTORY OF PRESENT ILLNESS: The patient is a 75-year-old male who presents with progressive right hip pain for the past several months. It has worsened recently. He has been limping. He notes groin pain, worse with weightbearing activities. He has been taking ibuprofen without much relief. PAST MEDICAL HISTORY: Significant for prostate cancer and type 2 diabetes. PAST SURGICAL HISTORY: Significant for left total hip arthroplasty and tonsillectomy and cholecystectomy. CURRENT MEDICATIONS: Aspirin, ibuprofen, metformin, Pravastatin. ALLERGIES: He denies drug allergies. FAMILY HISTORY: Significant for cancer. SOCIAL HISTORY: Negative for current tobacco or alcohol use. REVIEW OF SYSTEMS: Sixteen-point review of systems otherwise reviewed and is noncontributory. PHYSICAL EXAMINATION: On examination, the patient is approximately 5 foot 8, 225 pounds of endomorphic habitus. HEENT exam is nonfocal. Neck is supple. Passive motion of the right hip flexion 80 degrees, external rotation with hip flex 60 degrees, internal rotation -10 degrees with pain. Clinically, he has mild shortening of the right lower extremity compared to left. He walks with a mildly Trendelenburg gait. His distal neurovascular exam appears intact in the right lower extremity. X-rays of the right hip obtained in the office show severe hip osteoarthrosis with bone- on-bone changes and subchondral sclerosis. IMPRESSION: 1. Right hip severe osteoarthrosis. 2. History of left total hip arthroplasty. 3. Non-insulin dependent diabetes. RECOMMENDATIONS: I talked to the patient at length regarding his condition and treatment options. At this point, he is quite limited and symptomatic because of pain related to his right hip osteoarthrosis. After thorough discussion, he opts to proceed with surgery. We will plan to proceed with right total hip arthroplasty utilizing a direct anterior approach. We will institute DVT prophylaxis postoperatively. MMODL / IJN: [id number] /
[2021-04-04 14:00] VITALS: BMI 34.0
[~2021-04-09 11:43] MED LIST changes: -ACETAMINOPHEN TAB 500 MG TAB PO ONE; +ACETAMINOPHEN TAB 500 MG TAB PO PRN; -DEXAMETHASONE SOD PHOSPHATE 10 MG/ML 1 ML VIAL IV ONE; +DEXAMETHASONE SOD PHOSPHATE 4 MG/ML 1 ML VIAL IV ONE; -MELOXICAM 7.5 MG TAB PO ONE; +MELOXICAM 7.5 MG TAB PO PRN; -ONDANSETRON 4 MG/2 ML VIAL IVP ONE; +ONDANSETRON 4 MG/2 ML VIAL IVP PRN; -TRANEXAMIC ACID 1,000 MG in SODIUM CHLORIDE 0.9% 100 ML IVPB ONE; +TRANEXAMIC ACID 1,000 MG in SODIUM CHLORIDE 0.9% 100 ML IVPB PRN
[2021-04-09 12:41] LABS: Glucose,Whole Blood 111 mg/dL (75-99)
[2021-04-09] MEDS: LACTATED RINGERS 1,000 ML IV SCH (12:42)
[2021-04-09] MEDS ORDERED: SODIUM CHLORIDE 0.9% 100 ML BAG ONE (13:15)
[2021-04-09] MEDS ORDERED: WATER FOR INJECTION, STERILE 10 ML VIAL IV ONE (13:15)
[2021-04-09] MEDS ORDERED: PHENYLEPHRINE-0.9% NACL SYG 1,000 MCG/10 ML SYRINGE ONE (13:15)
[2021-04-09] MEDS ORDERED: fentaNYL (PF) 50 MCG/ML 2 ML AMP ONE (13:15)
[2021-04-09] MEDS ORDERED: PROPOFOL 10 MG/ML 20 ML VIAL IV ONE (13:15)
[2021-04-09] MEDS ORDERED: TRANEXAMIC ACID 1,000 MG/10 ML VIAL ONE (13:15)
[2021-04-09] MEDS ORDERED: ePHEDrine SULFATE/0.9% NACL/PF 50 MG/5 ML SYRINGE IV ONE (13:15)
[2021-04-09] MEDS ORDERED: MIDAZOLAM 2 MG/2 ML VIAL ONE (13:15)
[2021-04-09] MEDS ORDERED: LACTATED RINGERS 1,000 ML IV ONE ×2 (14:45→16:24)
[2021-04-09] MEDS ORDERED: NALOXONE 0.4 MG/ML 1 ML VIAL IV PRN (15:58)
[2021-04-09] MEDS ORDERED: HYDROcodone/APAP 5-325MG 1 EACH TAB PO PRN (15:58)
--- NOTE | 2021-04-09 16:03 | P.OP ---
Date of Procedure: 04/09/21 Preoperative Diagnosis: Severe right hip osteoarthrosis Postoperative Diagnosis: Same Procedure(s) Performed: Right total hip arthroplastyanterior approach Implants: Depuy Corail size 10 KLA collared press-fit femoral stem, 36/-2 cobalt chrome femoral head, 58 mm [place] acetabular shell with neutral polyethylene liner. Anesthesia: spinal Surgeon: Chriss Andersen Glove Cleaner #1: Cristian Ashby Estimated Blood Loss (ml): 250 Pathology: other (Femoral head) Condition: stable Disposition: PACU Indications for Procedure: The patient's a 75-year-old male who presents with progressive right hip pain secondary osteoarthrosis despite conservative measures. A discussion the risks and benefits of operative intervention versus continued conservative measures was made patient. He opted to proceed with surgery. Operative risks to include fracture, infection, neurovascular injury, development of blood clots, leg length discrepancy, possible instability need for subsequent procedures was discussed. Informed consent was obtained. Operative Findings: As below Description of Procedure: The patient was brought to the operating room, and after induction of spinal anesthesia was placed supine on the Selena table. Positioning was checked with fluoroscopy. The right hip was then prepped and draped in a normal fashion. A 12 cm incision was then made starting 2 fingerbreadths distal and 3 finger breaths posterior to the ASIS in line with the proximal femur. The skin was incised sharply. Subcutaneous tissues were divided sharply. Electrocautery was used for hemostasis. The fascia was split in line with skin incision. The interval between the sartorius and tensor fascia gauri was then bluntly developed. The posterior fascia was opened with electrocautery. The lateral circumflex vessels were identified and cauterized prior to sectioning. A retractor was placed along the superior femoral neck as well as the anterior acetabular rim. A wide capsulotomy was performed. The neck cut was then made at a 45 angle to the shaft approximately 1 1/2 cm above the level of the lesser trochanter. The head was extracted. Attention was then paid towards preparing the acetabular. Anterior and posterior retractors were placed. The remaining capsular labral tissue sharply debrided clearly defining the acetabular margins. I began reaming with a 45 mm reamer taking care to initially medialize then reaming at 45 of abduction and 20 of anteversion. Sequential reaming is performed up to 57 mm. A trial D8 mm acetabular shell was inserted in the same orientation and was fully seated. There was good rim fit and stability. Positioning was checked with fluoroscopy. The final D8 mm acetabular shell was inserted again at 45 of abduction and 20 of antev ersion. This was fully seated. There was good rim fit and stability. I did place one 6.5 mm x 30 mm cancellous screw was good purchase posteriorly. Again fluoroscopy was used to check the adequacy of placement. A neutral polyethylene liner was gently impacted. Care was taken to avoid any soft tissue interposition. Pulsatile lavage was utilized. Attention was then paid towards preparing the proximal femur. The central region was cleared of soft tissue. A canal finder was used to find the femoral canal. Sequential broaching was performed up to size 10 taking care to lateralize proximally. A calcar mill was used to fashion the medial calcar. There was good rotational stability. A coxa vara neck along with a -2 mm head was placed. The hip was gently reduced. Fluoroscopy was used to check the adequacy of positioning along with leg lengths. I felt both were good. The hip was gently dislocated. The trial components were removed. The final size 10 collared KLA press-fit femoral stem was inserted parallel to the posterior cortex. This was fully seated and there was good rotational stability. A 36 mm -2 head was placed. This was gently impacted. The hip was then gently reduced. Final fluoroscopic view showed adequate placement implant along with samaritan of leg length. Stability was checked with 80 of external rotation and 60 of extension of the right hip. The wound was irrigated with sterile lavage. The fascia was closed with running 0 Vicryl suture. There was minimal drainage therefore a deep drain was not placed. The second dose of IV TXA was given. The subcutaneous tissues were reapproximated interrupted 2-0 Vicryl sutures. The skin was reapproximated with 3-0 subcuticular strata fix suture. Skin tape and adhesive was applied. A sterile dressing was applied. The patient was then awoken from sedation and transferred to recovery room in good condition. Blood loss was estimated at 250 mL. No complications were incurred. Sponge and needle counts were correct at the end of the case. Cristian TRAN assisted during the major components is case to include exposure, bone resection, implantation, and closure.
[2021-04-09 16:21] VITALS: RESP 18
--- NOTE | 2021-04-09 16:22 | FL ---
Fluoroscopy and limited right hip HISTORY: Pain 67 seconds fluoroscopy time supplied to the referring clinician. 2 intraoperative C-arm images docum ent the procedure. See dictated report from orthopedic surgery.
--- NOTE | 2021-04-09 17:52 | XR ---
Limited right history: Status post right total hip arthroplasty Single frontal view of the right hip Patient is status post right hip arthroplasty. There is lucency in the soft tissues. Anatomic alignme nt is noted. IMPRESSION: Orthopedic follow-up.
--- NOTE | 2021-04-09 18:49 | P.CONS ---
History of Present Illness - Reason for Consult Consult date: 04/09/21 Medical management, type 2 diabetes, hyperlipidemia and hypothyroidism Requesting physician: Chriss Andersen - Chief Complaint Post right total hip arthroplasty, type 2 diabetes, hypertension hyperlipid - History of Present Illness HISTORY OF PRESENT ILLNESS 74-year-old male of Dr. Navarrete patient with past medical history of diabetes, hypertension and hyperlipidemia who had left total hip arthroplasty back in 04/17/2020 successfully with no major complication has done very well was in the hospital overnight only and done well with physical therapy and medical management afterward. Patient apparently developed to have worsening pain and discomfort in the right hip for the last few weeks and up seen his orthopedic his x-ray showed severe advanced arthritis. Patient was scheduled for elective right total hip arthroplasty which was done today successfully with no major complication. Patient was admitted to the floor afterward is doing well no complication his hemodynamically stable and pain is well controlled. REVIEW OF SYSTEMS Constitutional: No fever, no chills, no night sweats. Mildly overweight No weakness, fatigue or lethargy. No daytime sleepiness. EENT: No headache. No blurred vision or double vision, no loss of vision. No loss of Hearing, no ringing in the ears, no dizziness. No nasal drainage or congestion. No epistaxis. No sore throat. Lungs: No shortness of breath, cough, no sputum production. No wheezing. Cardiovascular: No chest pain, no lower extremity edema. No palpitations. No paroxysmal nocturnal dyspnea. No orthopnea. No lightheadedness or dizziness. No syncopal episodes. Abdominal: No abdominal pain. No nausea, vomiting. No diarrhea. No constipation. No bloody or tarry stools.. No loss of appetite. Genitourinary: No dysuria, increased frequency, urgency. No urinary retention. Musculoskeletal: No myalgias. No muscle weakness, no gait dysfunction, no frequent falls. No back pain. No neck pain. Integumentary: No wounds, no lesions. No rash or pruritus. No unusual bruising. No change in hair or nails. Still having pain in the right hip area Neurologic: No aphasia. No facial droop. No change in mentation. No head injury. No headache. No paralysis. No paresthesia. Psychiatric: No depression. No anxiety. No mood swings. Endocrine: No abnormal blood sugars. No weight change. No excessive sweating or thirst. No cold intolerance. SOCIAL HISTORY Quit smoking 1980 used smoked pack a day for 15 years, no ocular abuse, no marijuana use. Patient does not use any CPAP or oxygen at home. FAMILY HISTORY Both parents dye in older age. Patient had cystoscopy with eye from PHYSICAL EXAMINATION Gen: This is mildly overweight no acute respiratory distress. HEENT: Head is atraumatic, normocephalic. Pupils equal, round. Sclerae is anicteric. NECK: Supple. No JVD. No lymphadenopathy. No thyromegaly. LUNGS: Clear to auscultation. No wheezes or rhonchi. No intercostal retractions. HEART: Regular rate and rhythm. No murmur. ABDOMEN: Soft. Bowel sounds are present. No masses. No tenderness. EXTREMITIES: No pedal edema. No calf tenderness. Incision in his left hip looks good has recover with no problem. Right hip has an anterior approach a new incision with no bruises induration or infection. NEUROLOGICAL: Patient is awake, alert and oriented x3. Cranial nerves 2 through 12 are grossly intact. ASSESSMENT AND PLAN 1. Post right total hip arthroplasty: Stable continue post surgical protocol with GI, DVT and pulmonary prophylaxis. Continue to watch patient hemodynamic status, continue to watch his pain. 2 type 2 diabetes: Has been on metformin 500 mg twice a day continue Accu-Chek with sliding scales coverage. 3 hyperlipidemia: Continue pravastatin at 20 mg daily patient is not having any reaction or side effect. 4 severe GERD: Patient has been on omeprazole 20 mg a day resume medication. 5 pain and pain management: Patient is getting hydrocodone on an as-needed basis, still on Dilaudid for breakthrough pain if needed. 6 anticoagulation: Patient will be on Lovenox or 10 mg subcutaneous daily as well as the hospital and when he leaves the hospital patient most likely will be on full size aspirin daily. Dr. Andersen thank you much for the consult if I can be any further help to please let me know. Past Medical History Past Medical History: Diabetes Mellitus, GERD/Reflux, Hearing Disorder / Deafness, Hyperlipidemia, Osteoarthritis (OA), Prostate Disorder History of Any Multi-Drug Resistant Organisms: None Reported Past Surgical History: Cholecystectomy, Joint Replacement, Prostate Surgery Additional Past Surgical History / Comment(s): prostate 2008. Total Lt hip 03/2020 Past Anesthesia/Blood Transfusion Reactions: No Reported Reaction Past Psychological History: No Psychological Hx Reported Smoking Status: Former smoker Past Alcohol Use History: None Reported Additional Past Alcohol Use History / Comment(s): Smoked 15 years, 1 ppd, quit 1980 Past Drug Use History: None Reported - Past Family History Sister(s) Family Medical History: Cancer Additional Family Medical History / Comment(s): lung cancer Father Family Medical History: Cancer Additional Family Medical History / Comment(s): bone cancer Mother Additional Family Medical History / Comment(s): blood clot on the brain, dementia Medications and Allergies Home Medications Medication Instructions Recorded Confirmed Type Ibuprofen 800 mg PO DAILY PRN 01/30/17 04/04/21 History Pravastatin Sodium [Pravachol] 20 mg PO DAILY 01/30/17 04/04/21 History metFORMIN HCL [Metformin HCl] 500 mg PO BID 01/30/17 04/09/21 History Ascorbic Acid [Vitamin C] 500 mg PO DAILY 04/13/20 04/09/21 History [place]-3 Fatty Acids/Fish Oil [Fish 1 each PO DAILY 04/13/20 04/04/21 History Oil 1,000 mg Softgel] Aspirin [Adult Low Dose Aspirin EC] 81 mg PO DAILY 04/04/21 04/04/21 History Cholecalciferol (Vitamin D3) 125 mcg PO DAILY 04/04/21 04/04/21 History [Vitamin D3 (125 MCG = 5,000 IU)] Omeprazole [PriLOSEC] 20 mg PO [id number]-[id number] 04/04/21 04/04/21 History Acetaminophen [Tylenol] 2 tab PO Q6HR PRN 04/09/21 04/09/21 History Allergies Allergy/AdvReac Type Severity Reaction Status Date / Time No Known Allergies Allergy Verified 04/09/21 12:02 Physical Exam Vitals: Vital Signs Temp Pulse Pulse Resp BP Pulse Ox 04/09/21 17:15 98.0 F 69 18 113/66 96 04/09/21 16:31 69 18 108/63 95 04/09/21 16:16 72 18 103/65 100 04/09/21 15:59 97.7 F 74 16 110/58 98 04/09/21 12:17 98.2 F 75 18 162/79 96 Intake and Output 04/09/21 04/09/21 04/09/21 06:59 14:59 22:59 Intake Total 1650 980 Output Total 250 0 Balance 1400 980 Intake: IV 1650 500 Oral 480 Output: Urine 0 Estimated Blood Loss 250 Other: Weight 99.6 kg 99.6 kg Results Labs: Abnormal Lab Results - Last 24 Hours (Table) 04/09/21 Range/Units 12:39 POC Glucose (mg/dL) 111 H (75-99) mg/dL
[2021-04-09 20:20] LABS: Glucose,Whole Blood 224 mg/dL (75-99)
[2021-04-09] MEDS: INSULIN ASPART (NovoLOG) 100 UNIT/ML VIAL SQ SCH (20:31)
[2021-04-09] MEDS: HYDROcodone/APAP 7.5-325MG 1 EACH TAB PO PRN (20:43)
[2021-04-09] MEDS ORDERED: SENNOSIDES-DOCUSATE SODIUM 1 EACH TAB PO SCH (21:00)
[2021-04-10] MEDS: HYDROcodone/APAP 7.5-325MG 1 EACH TAB PO PRN ×2 (04:06→10:22)
[2021-04-10] MEDS: LACTATED RINGERS 1,000 ML IV SCH (04:54)
[2021-04-10 06:47] LABS: Glucose,Whole Blood 134 mg/dL (75-99)
[2021-04-10 07:48] VITALS: BP 101/62; TEMP 97.9
[2021-04-10] MEDS: INSULIN ASPART (NovoLOG) 100 UNIT/ML VIAL SQ SCH ×2 (08:55→12:20)
[2021-04-10 08:58] VITALS: PULSE 83
[2021-04-10] MEDS ORDERED: ENOXAPARIN 40 MG/0.4 ML SYRINGE SQ SCH (09:00)
[2021-04-10 09:36] LABS: Basophils # (A) 0.02 X 10*3/uL (0.00-0.10); Basophils % (A) 0.2 %; Eosinophils # (A) 0 X 10*3/uL (0.04-0.35); Eosinophils % (A) 0 %; HCT 31.5 % (39.6-50.0); HGB 10.3 g/dL (13.0-17.0); Lymphocytes # (A) 0.98 X 10*3/uL (0.90-5.00); Lymphocytes % (A) 10.6 %; MCH 31.3 pg (27.0-32.0); MCHC 32.7 g/dL (32.0-37.0); MCV 95.7 fL (80.0-97.0); Mean Platelet Volume 10.9 fL (9.5-12.2); Monocytes # (A) 0.82 X 10*3/uL (0.20-1.00); Monocytes % (A) 8.9 %; Neutrophils # (A) 7.38 X 10*3/uL (1.80-7.70); Neutrophils % (A) 79.8 %; Platelet Count 189 X 10*3/uL (140-440); RBC 3.29 X 10*6/uL (4.40-5.60); WBC 9.25 X 10*3/uL (4.50-10.00)
--- NOTE | 2021-04-10 10:47 | P.DS ---
Providers Date of admission: 04/09/21 Expected date of discharge: 04/10/21 Attending physician: Chriss Andersen Consults: 04/09/21 15:58 Consult Physician Routine Consulting Provider: Baldemar Bower Reason/Comments: s/p right total hip arthroplasty Do you want consulting provider notified?: Yes Primary care physician: [facility] Hospital Course: Date of admission: 04/09/2021 Date of discharge: 04/10/2021 Admission diagnosis: Right hip osteoarthritis Discharge diagnosis: Same Attending physician: Dr. Andersen Surgical procedures: Right total hip arthroplasty Brief history: Patient is a 75-year-old male with a history of progressive primary right hip osteoarthritis. At this point patient has failed conservative treatment measures and has opted to proceed with a elective right total hip arthroplasty. Hospital course: Details of patient's surgery can be found in operative report. Patient tolerated the procedure well and was subsequently transported to orthopedic floor. Patient's orthopeidc and medical care was provided daily. Patient had daily laboratory tests performed for evaluation of overall blood counts . Patient had daily physical therapy to include strengthening range of motion as well as education with walker ambulation. Patient was treated with Lovenox for their postoperative DVT prophylaxis during their inpatient stay. Patient was noted to have a relatively uneventful postoperative course. Patient reported satisfactory pain control with oral pain medications by postoperative day 1. Patient showed satisfactory progress with physical therapy. Patient moved steadily through the program and had no difficulty meeting the goals by postoperative day 1. Given patient's otherwise satisfactory course and having met physical therapy goals, plan is to discharge patient home on postoperative day 1. Discharge condition/disposition: Patient will be discharged home in stable condition. Discharge medications: Instructions are given on resumption of patient's normal daily medications per primary care recommendation, in addition patient will be prescribed [place] 5 mg/325 mg; patient has aspirin at home. Take 81 mg BID x 30 days Discharge instructions: 1. Wound care and infection precautions, keep incision dry and covered while showering, no lotions, creams, moisturizers. No soaking, tubs, pools, hottubs. Do not scrub over the incision. 2. Weight-bear as tolerated with walker / cane until follow-up. 3. Ice and elevate when necessary. Do not exceed 20 minutes per hour with ice pack. 4. Utilize compression sleeve until seen at first follow up appointment. 5. Visiting nursing care. 6. Home physical therapy. 7. Pain meds and anticoagulants per prescription. 8. Pain medication has potential to cause constipation. Increase oral fluid and fiber intake. Contact primary care provider if you have not had a bowel movement within 48 hours after discharge 9. No anti-inflammatory medication until discussed at first post operative visit, this including Motrin, Aleve, Mobic, Diclofenac. 10. Follow up in office at 2 weeks postop with Fritz Lr PA-C / Cristian Ashby PA-C 11. Follow up with your primary care doctor 7-10 days after discharge. 12. Contact [facility] with any questions, . Assessment: Right hip osteoarthritis Procedures: Right total hip arthroplasty Patient Condition at Discharge: Good Plan - Discharge Summary Discharge Rx Participant: No New Discharge Prescriptions: New HYDROcodone/APAP 5-325MG [[place] 5-325] 1 tab PO Q6HR PRN #36 tab PRN Reason: Pain No Action Pravastatin Sodium [Pravachol] 20 mg PO DAILY Ibuprofen 800 mg PO DAILY PRN PRN Reason: Pain metFORMIN HCL [Metformin HCl] 500 mg PO BID Ascorbic Acid [Vitamin C] 500 mg PO DAILY [place]-3 Fatty Acids/Fish Oil [Fish Oil 1,000 mg Softgel] 1 each PO DAILY Cholecalciferol (Vitamin D3) [Vitamin D3 (125 MCG = 5,000 IU)] 125 mcg PO DAILY Omeprazole [PriLOSEC] 20 mg PO AC-BRKFST Aspirin [Adult Low Dose Aspirin EC] 81 mg PO DAILY Acetaminophen [Tylenol] 2 tab PO Q6HR PRN PRN Reason: Pain Discharge Medication List Ibuprofen 800 mg PO DAILY PRN 01/30/17 [History] Pravastatin Sodium [Pravachol] 20 mg PO DAILY 01/30/17 [History] metFORMIN HCL [Metformin HCl] 500 mg PO BID 01/30/17 [History] Ascorbic Acid [Vitamin C] 500 mg PO DAILY 04/13/20 [History] [place]-3 Fatty Acids/Fish Oil [Fish Oil 1,000 mg Softgel] 1 each PO DAILY 04/13/20 [History] Aspirin [Adult Low Dose Aspirin EC] 81 mg PO DAILY 04/04/21 [History] Cholecalciferol (Vitamin D3) [Vitamin D3 (125 MCG = 5,000 IU)] 125 mcg PO DAILY 04/04/21 [History] Omeprazole [PriLOSEC] 20 mg PO AC-BRKFST 04/04/21 [History] Acetaminophen [Tylenol] 2 tab PO Q6HR PRN 04/09/21 [History] HYDROcodone/APAP 5-325MG [[place] 5-325] 1 tab PO Q6HR PRN #36 tab 04/10/21 [Rx] Follow up Appointment(s)/Referral(s): Cristian Ashby, NIMA [PHYSICIAN MANAGER CHEMICAL] - 2 Weeks Activity/Diet/Wound Care/Special Instructions: Orthopedic Discharge Instructions: 1. Wound care and infection precautions, keep incision dry and covered while showering, no lotions, creams, moisturizers. No soaking, pools, hot tubs. Do not scrub over incision. 2. Weight-bear as tolerated with walker / cane until follow-up. 3. Ice and elevate when necessary. Do not exceed 20 minutes per hour with ice pack. 4. Utilize compression sleeve until seen at first follow up appointment. 5. Pain meds and anticoagulants per prescription. 6. Pain medication has potential to cause constipation. Increase oral fluid and fiber intake. Contact primary care provider if you have not had a bowel movement within 48 hours after discharge. 7. No anti-inflammatory medication until discussed at first post operative visit, this including Motrin, Aleve, Mobic, Diclofenac. 8. Follow up in office at 2 weeks postop with Fritz Lr PA-C / Cristian Ashby PA-C 9. Follow up with your primary care doctor 7-10 days after discharge. 10. Contact [facility] with any questions, . Take 81 mg aspirin BID x 30 days. Discharge Disposition: HOME WITH HOME HEALTH SERVICES
--- NOTE | 2021-04-10 10:56 | P.PN ---
Subjective Progress Note Date: 04/10/21 Principal diagnosis: Right hip osteoarthritis Patient seen at bedside this morning. Patient is lying in chair with legs elevated. Patient states he is in minimal pain in this morning. Patient says he has had bowel movement. He says physical therapy went well this morning and he walked up-and-down the hallway and up-and-down a couple steps. Patient denies chest pain, fever, shortness breath, nausea, vomiting, change in vision, loss of bowel/bladder control. Objective - Vital Signs Vital signs: Vital Signs Temp 97.9 F 04/10/21 07:47 Pulse 83 04/10/21 08:57 Resp 18 04/10/21 07:47 BP 101/62 04/10/21 07:47 Pulse Ox 95 04/10/21 07:47 Intake & Output 04/09/21 04/10/21 04/10/21 18:59 06:59 18:59 Intake Total 2630 Output Total 250 Balance 2380 Weight 99.6 kg Intake: IV 2150 Oral 480 Output: Urine 0 Estimated Blood Loss 250 Other: Voiding Method Toilet # Voids 2 # Bowel Movements 1 - Exam Right hip: Incision is clean, dry, and intact. The exofin fusion tape is in good condition. There is minimal soft tissue swelling and ecchymosis surrounding the medial and lateral aspects of the incision. Calf is soft, no tenderness with palpation. Plantar flexion, dorsiflexion, EHL, FHL are intact. Sensory exam to light touch throughout the extremity is intact, dorsal pedis pulses 2+. - Labs CBC & Chem 7: 04/10/21 05:58 Labs: Abnormal Lab Results - Last 24 Hours (Table) 04/09/21 04/09/21 04/10/21 Range/Units 12:39 20:15 05:58 RBC 3.29 L (4.40-5.60) X 10*6/uL Hgb 10.3 L (13.0-17.0) g/dL Hct 31.5 L (39.6-50.0) % Immature Gran # 0.05 H (0.00-0.04) X 10*3/uL Eosinophils # 0 L (0.04-0.35) X 10*3/uL POC Glucose (mg/dL) 111 H 224 H (75-99) mg/dL 04/10/21 Range/Units 06:45 RBC (4.40-5.60) X 10*6/uL Hgb (13.0-17.0) g/dL Hct (39.6-50.0) % Immature Gran # (0.00-0.04) X 10*3/uL Eosinophils # (0.04-0.35) X 10*3/uL POC Glucose (mg/dL) 134 H (75-99) mg/dL Assessment and Plan Assessment: Right hip osteoarthritis Plan: 1. Right hip osteoarthritis - surgery performed yesterday, 04/09/2021 - right total hip arthroplasty. Patient stable this morning plan for discharge home today 2. Appreciate medical management 3. Pain management - stable at this time. Going home with [place] 5 mg/325 mg 4. DVT prophylaxis/GI prophylaxis - Lovenox in hospital. Same. Patient to take aspirin 81 mg twice a day 30 days at home 5. PT/OT - weightbearing as tolerated with walker for assistance 6. Encourage incentive spirometer use 7. Plan for discharge home today, 04/10/2021 Time with Patient: Less than 30
--- NOTE | 2021-04-10 15:37 | P.PN ---
Subjective Progress Note Date: 04/10/21 HISTORY OF PRESENT ILLNESS 74-year-old male of Dr. Navarrete patient with past medical history of diabetes, hypertension and hyperlipidemia who had left total hip arthroplasty ba lisseth in 04/17/2020 successfully with no major complication has done very well was in the hospital overnight only and done well with physical therapy and medical management afterward. Patient apparently developed to have worsening pain and discomfort in the right hip for the last few weeks and up seen his orthopedic his x-ray showed severe advanced arthritis. Patient was scheduled for elective right total hip arthroplasty which was done today successfully with no major complication. Patient was admitted to the floor afterward is doing well no complication his hemodynamically stable and pain is well controlled. 04/10: Patient states that his pain is well controlled. He is already worked with physical therapy and on the steps. He is utilizing incentive spirometry and reaching 2500. Patient has been afebrile, heart rate 117 early this morning with repeat of 83. Blood pressure 101/62, pulse ox 95% on room air. Patient was tachycardic shortly after using incentive spirometry. EKG is a sinus rhythm. Blood work reveals WBC 9.2, hemoglobin 10.3, platelet count 189. Blood sugars are running between 111 and 224. Patient is cleared for medicine for discharge home. Medication reconciliation reviewed. REVIEW OF SYSTEMS Constitutional: No fever, no chills, no night sweats. Mildly overweight No weakness, fatigue or lethargy. No daytime sleepiness. EENT: No headache. No blurred vision or double vision, no loss of vision. No loss of Hearing, no ringing in the ears, no dizziness. No nasal drainage or congestion. No epistaxis. No sore throat. Lungs: No shortness of breath, cough, no sputum production. No wheezing. Cardiovascular: No chest pain, no lower extremity edema. No palpitations. No paroxysmal nocturnal dyspnea. No orthopnea. No lightheadedness or dizziness. No syncopal episodes. Abdominal: No abdominal pain. No nausea, vomiting. No diarrhea. No constipation. No bloody or tarry stools.. No loss of appetite. Genitourinary: No dysuria, increased frequency, urgency. No urinary retention. Musculoskeletal: No myalgias. No muscle weakness, no gait dysfunction, no frequent falls. No back pain. No neck pain. Integumentary: No wounds, no lesions. No rash or pruritus. No unusual bruising. No change in hair or nails. Minimal pain in the right hip area Neurologic: No aphasia. No facial droop. No change in mentation. No head injury. No headache. No paralysis. No paresthesia. Psychiatric: No depression. No anxiety. No mood swings. Endocrine: No abnormal blood sugars. No weight change. No excessive sweating or thirst. No cold intolerance. PHYSICAL EXAMINATION Gen: This is mildly overweight no acute respiratory distress, resting in recliner. HEENT: Head is atraumatic, normocephalic. Pupils equal, round. Sclerae is anicteric. NECK: Supple. No JVD. No lymphadenopathy. No thyromegaly. LUNGS: Clear to auscultation. No wheezes or rhonchi. No intercostal retractions. HEART: Regular rate and rhythm. No murmur. ABDOMEN: Soft. Bowel sounds are present. No masses. No tenderness. EXTREMITIES: No pedal edema. No calf tenderness. Incision in his left hip looks good has recover with no problem. Right hip has an anterior approach a new incision with no bruises induration or infection. NEUROLOGICAL: Patient is awake, alert and oriented x3. Cranial nerves 2 through 12 are grossly intact. ASSESSMENT AND PLAN 1. Post right total hip arthroplasty: Stable continue post surgical protocol with GI, DVT and pulmonary prophylaxis. Continue to watch patient hemodynamic status, continue to watch his pain. 2 type 2 diabetes: Has been on metformin 500 mg twice a day continue Accu-Chek with sliding scales coverage. 3 hyperlipidemia: Continue pravastatin at 20 mg daily patient is not having any reaction or side effect. 4 severe GERD: Patient has been on omeprazole 20 mg a day resume medication. 5 pain and pain management: Patient is getting hydrocodone on an as-needed basis, still on Dilaudid for breakthrough pain if needed. 6 anticoagulation: Patient will be on Lovenox or 10 mg subcutaneous daily as well as the hospital and when he leaves the hospital patient most likely will be on full size aspirin daily. Dr. Andersen thank you much for the consult if I can be any further help to please let me know. Discharge plan: Home Impression and plan of care have been directed as dictated by the signing physician. Lyndsey Clarke nurse practitioner acting as scribe for signing physician. Objective - Vital Signs Vital signs: Vital Signs Temp 97.9 F 04/10/21 07:47 Pulse 83 04/10/21 08:57 Resp 18 04/10/21 07:47 BP 101/62 04/10/21 07:47 Pulse Ox 95 04/10/21 07:47 Intake & Output 04/09/21 04/10/21 04/10/21 18:59 06:59 18:59 Intake Total 2630 Output Total 250 Balance 2380 Weight 99.6 kg Intake: IV 2150 Oral 480 Output: Urine 0 Estimated Blood Loss 250 Other: Voiding Method Toilet # Voids 2 # Bowel Movements 1 - Labs CBC & Chem 7: 04/10/21 05:58 Labs: Abnormal Lab Results - Last 24 Hours (Table) 04/09/21 04/09/21 04/10/21 Range/Units 12:39 20:15 05:58 RBC 3.29 L (4.40-5.60) X 10*6/uL Hgb 10.3 L (13.0-17.0) g/dL Hct 31.5 L (39.6-50.0) % Immature Gran # 0.05 H (0.00-0.04) X 10*3/uL Eosinophils # 0 L (0.04-0.35) X 10*3/uL POC Glucose (mg/dL) 111 H 224 H (75-99) mg/dL 04/10/21 Range/Units 06:45 RBC (4.40-5.60) X 10*6/uL Hgb (13.0-17.0) g/dL Hct (39.6-50.0) % Immature Gran # (0.00-0.04) X 10*3/uL Eosinophils # (0.04-0.35) X 10*3/uL POC Glucose (mg/dL) 134 H (75-99) mg/dL
== END 2021-04-10 12:57 | disposition home health service (06) ==
LOC: OR 11:43 → 4SSUR 16:47 → OR 04-10 12:57
PROVIDERS: ATTEND Orthopaedic Surgery
DX: M16.11 Unilateral primary osteoarthritis, right hip (principal); E11.9 Type 2 diabetes mellitus without complications; E03.9 Hypothyroidism, unspecified; E78.5 Hyperlipidemia, unspecified; I10 Essential (primary) hypertension; Z85.46 Personal history of malignant neoplasm of prostate; Z90.49 Acquired absence of other specified parts of digestive tract; Z90.89 Acquired absence of other organs; Z79.84 Long term (current) use of oral hypoglycemic drugs; Z79.82 Long term (current) use of aspirin; Z79.899 Other long term (current) drug therapy; Z80.1 Family history of malignant neoplasm of trachea, bronchus and lung; Z80.8 Family history of malignant neoplasm of other organs or systems; K21.9 Gastro-esophageal reflux disease without esophagitis; Z96.642 Presence of left artificial hip joint; Z87.891 Personal history of nicotine dependence
CPT/HCPCS: 27130; 93005; 97161; 85025; 88300; 73501; C1776; J2250; J1100; J0690 ×2; J2405; J1650; J3010; J2370; J2704; 86850; 86900; 86901

== ENCOUNTER → 2022-01-13 | Outpatient (CLI) | payer MEDICARE, OTHER ==
[2022-01-13 23:00] LABS: Anion Gap 10.8 mmol/L (10.00-18.00); Carbon Dioxide 26.9 mmol/L (20.0-27.5); Potassium 4.4 mmol/L (3.5-5.5)
== END | disposition home or self-care (01) ==
LOC: LABWHC1 13:54
PROVIDERS: ATTEND Otolaryngology
DX: Z01.818 Encounter for other preprocedural examination (principal); I44.7 Left bundle-branch block, unspecified; E11.9 Type 2 diabetes mellitus without complications; R94.31 Abnormal electrocardiogram [ECG] [EKG]
CPT/HCPCS: 36415; 80051; 82947; 93005

== ENCOUNTER 2024-01-05 08:08 | Day surgery (SDC) | payer MEDICARE ==
[2024-01-05] MEDS: LACTATED RINGERS 1,000 ML IV SCH (08:34)
[2024-01-05 08:37] LABS: Glucose,Whole Blood 119 mg/dL (70-110)
[2024-01-05] MEDS ORDERED: PROPOFOL 10 MG/ML 20 ML VIAL IV ONE (09:00)
[2024-01-05 09:01] VITALS: RESP 16; TEMP 97
--- NOTE | 2024-01-05 09:03 | P.GSHP ---
History of Present Illness H&P Date: 01/05/24 Chief Complaint: Colon cancer screening 78-year-old male here for colonoscopy. Last colonoscopy about 10 years ago. History of polyps on his first colonoscopy many years ago. No bowel complaints. No family history of colon cancer. Past Medical History Past Medical History: Diabetes Mellitus, GERD/Reflux, Hyperlipidemia, Hypertension, Thyroid Disorder History of Any Multi-Drug Resistant Organisms: None Reported Past Surgical History: Cholecystectomy, Joint Replacement, Prostate Surgery Additional Past Surgical History / Comment(s): prostate 2009 jessenia hip replacement, Past Anesthesia/Blood Transfusion Reactions: No Reported Reaction Smoking Status: Former smoker - Past Family History Sister(s) Family Medical History: Cancer Additional Family Medical History / Comment(s): lung cancer Father Family Medical History: Cancer Additional Family Medical History / Comment(s): bone cancer Mother Additional Family Medical History / Comment(s): blood clot on the brain, dementia Medications and Allergies Home Medications Medication Instructions Recorded Confirmed Type Ibuprofen 800 mg PO DAILY PRN 01/30/17 12/31/23 History Pravastatin Sodium [Pravachol] 20 mg PO DAILY 01/30/17 12/31/23 History metFORMIN HCL [Metformin HCl] 500 mg PO BID 01/30/17 01/05/24 History Ascorbic Acid [Vitamin C] 500 mg PO DAILY 04/13/20 12/31/23 History Aspirin [Adult Low Dose Aspirin EC] 81 mg PO DAILY 04/04/21 12/31/23 History Cholecalciferol (Vitamin D3) 125 mcg PO DAILY 04/04/21 12/31/23 History [Vitamin D3 (125 MCG = 5,000 IU)] Omeprazole [PriLOSEC] 20 mg PO AC-BRKFST 04/04/21 12/31/23 History Acetaminophen [Tylenol] 2 tab PO Q6HR PRN 04/09/21 12/31/23 History Losartan Potassium 100 mg PO DAILY 12/31/23 01/05/24 History Allergies Allergy/AdvReac Type Severity Reaction Status Date / Time No Known Allergies Allergy Verified 01/05/24 08:18 Surgical - Exam Vital Signs Temp Pulse Resp BP Pulse Ox 97 F L 68 16 163/79 98 01/05/24 08:22 01/05/24 08:22 01/05/24 08:22 01/05/24 08:22 01/05/24 08:22 Physical exam: General: Well-developed, well-nourished HEENT: Normocephalic, sclerae nonicteric Abdomen: Nontender, nondistended Extremities: No edema Neuro: Alert and oriented Results - Labs Abnormal Lab Results - Last 24 Hours (Table) 01/05/24 Range/Units 08:26 POC Glucose (mg/dL) 119 H (70-110) mg/dL Assessment and Plan (1) Colon cancer screening Narrative/Plan: Will proceed with colonoscopy at this time. Current Visit: Yes Status: Acute Code(s): Z12.11 - ENCOUNTER FOR SCREENING FOR MALIGNANT NEOPLASM OF COLON SNOMED Code(s): 411907222
--- NOTE | 2024-01-05 09:27 | P.PCN ---
Date of Procedure: 01/05/24 Procedure(s) Performed: PREOPERATIVE DIAGNOSIS: Colon cancer screening POSTOPERATIVE DIAGNOSIS: Descending colon polyp, diverticulosis PROCEDURE: Colonoscopy with snare polypectomy ANESTHESIA: MAC SURGEON: Isidoro Jackson M.D. SPECIMENS: Polyp ENDOSCOPIC PROCEDURE: The patient was placed on the endoscopy table in the left decubitus position. The Olympus colonoscope was inserted into the anus and passed under direct visualization to the base of the cecum. The appendiceal orifice was visualized. From that point the scope was slowly withdrawn inspecting all surfaces carefully. There were no neoplastic inflammatory or polypoid lesions throughout the cecum, ascending, and transverse colon. In the descending colon a small polyp was seen and removed using the snare with cautery technique. The remainder of the descending sigmoid and rectum appeared normal. The patient had mild scattered diverticulosis. Digital rectal examination was normal. The patient was taken to the recovery room in stable condition per anesthesia guidelines. RECOMMENDATIONS: Await biopsy results. Anticipate repeat colonoscopy 5 to 7 years
[2024-01-05 09:50] VITALS: BP 147/89; PULSE 61
== END 2024-01-05 10:19 | disposition home or self-care (01) ==
LOC: ORWHC2ENDO 08:08
PROVIDERS: ATTEND Surgery
DX: Z12.11 Encounter for screening for malignant neoplasm of colon (principal); D12.4 Benign neoplasm of descending colon; E11.9 Type 2 diabetes mellitus without complications; E78.5 Hyperlipidemia, unspecified; I10 Essential (primary) hypertension; K21.9 Gastro-esophageal reflux disease without esophagitis; M19.90 Unspecified osteoarthritis, unspecified site; H91.90 Unspecified hearing loss, unspecified ear; Z79.84 Long term (current) use of oral hypoglycemic drugs; Z79.82 Long term (current) use of aspirin; Z87.891 Personal history of nicotine dependence; Z90.49 Acquired absence of other specified parts of digestive tract; Z79.899 Other long term (current) drug therapy; Z86.010 Personal history of colon polyps
CPT/HCPCS: 88305; 45385; J2704

== ENCOUNTER → 2024-11-08 | Outpatient (CLI) | payer MEDICARE ==
--- NOTE | 2024-11-08 08:35 | MR ---
EXAMINATION TYPE: MR Prostate wo/w con DATE OF EXAM: 11/08/2024 6:55 AM COMPARISON: None. CLINICAL INDICATION: Male, 78 years old with history of R97.20 ELEVATED PROSTATE SPECIFIC ANTIGEN [PS A]; Elevated PSA TECHNIQUE: Multi-planar, multi-sequence imaging of the pelvis is performed prior to and following the uncomplicated administration of bolus intravenous gadolinium. IV Contrast: 10 mL Gadobutrol Interpretive Criteria: PI-RADS v2.1 SERUM PSA: PSA-10/2024=4.55 05/2018=4.09 SURGICAL PATHOLOGY: No data available. FINDINGS: Prostatic dimensions: 6.7 x 4.3 x 4.9 cm. Ellipsoid Volume:73.92 (PSA density=0.06 ng/mL/mL) CENTRAL GLAND (Central and Transition Zones/CZ+TZ): Suspected post TURP changes to the central gland. Multiple bilateral, heterogenous appearing hypertrophic stromal nodules, without suspicious lesion. M edian lobe hypertrophy with protrusion into the base of the bladder. (PI-RADS 2) PERIPHERAL ZONE (PZ): Susceptibility artifact from hip arthroplasties limit evaluation. The diffusion-weighted sequences ar e essentially nondiagnostic. By T2 weighted sequences only no suspicious masses identified. (PI-RADS 2) SEMINAL VESICLES (SV): Symmetric and unremarkable. PERIPROSTATIC TISSUES: Unremarkable. LYMPH NODES: No enlarged pelvic lymph node. REMAINING PELVIS: Bladder wall is within normal limits given distention. No abnormal free or organized intrapelvic fluid collection. No pathologic bowel dilation or mural thickening. No hernia visualized OSSEOUS STRUCTURES: No suspicious osseous abnormality. IMPRESSION: 1. Hip arthroplasties limit evaluation the diffusion-weighted sequences are nondiagnostic for the pe ripheral zone base and T2-weighted sequences only no suspicious masses. No specific features for high -risk prostate cancer. Maximum PI-RADS score: 2. 2. Post TURP changes with Moderate BPH, estimated gland volume 73.92 (PSA density=0.06 ng/mL/mL) 3. No suspicious osseous lesion. No lymphadenopathy. No evidence of prostate adenocarcinoma involvin g the periprostatic tissues. [facility], , 11/08/2024 8:33 AM
== END | disposition home or self-care (01) ==
LOC: RADMRIMAIN 05:50
PROVIDERS: ATTEND Urology
DX: R97.20 Elevated prostate specific antigen [PSA] (principal); N40.0 Benign prostatic hyperplasia without lower urinary tract symptoms; Z96.643 Presence of artificial hip joint, bilateral
CPT/HCPCS: 72197; A9585